=== PATIENT | male | born 1970 | race Caucasian/White ===

== ENCOUNTER 2016-07-13 10:26 | Emergency (ER) | payer MEDICAID, MEDICARE ==
[~2016-07-13 10:26] MED LIST: /CELE20CA; /ESOM40CA; /SUCR1TA; ACET500T2; ACET65TA; ALCOHOL TOP; AMIT25TA PO; AMOXICILLIN; ASPI1TAB PO; ASPI81TA13 PO; ASPI81TA83; AUGM875T27 PO; BIAX500T; CELEXA20 PO; FIBE62TA PO; GLUC1TOUCH TOPICAL; GLUCOPH500 PO; GLUCOSE TEST; GLUCULTRA TOPICAL; HUMULINN SC; HUMULINR SC; INSUH10VL SC; INSULADS SC; INSULANT; INSULINSYR SUBQ; KDUR20 PO; LANCMIS; LANTUS SQ; LANTUSCART; LESCOLXL80 PO; LEVO25TABR; LEVO25TABR PO; LEVO50TA45 PO; LIPITOR80 PO; LISI40TAB PO; LISI5TAB; MAG-TAB; MAG-TAB PO; METO10TA2; NEEDLESGP; NEXI40GR; NOVO7030 SC; NOVOLOG SQ; NOVOLOG100 MG/ML; NOVOLOG100 MG/ML SQ; NOVOLOGPEN SQ; PERCOCET PO; POTA10CA2 OR; POTA1TAB14 PO; PRIN10TA; PRIN5TAB OR; QUININE325 PO; SIMV40TA2 PO; SLOWMAG PO; SYNT50TA; SYNTHRO025 PO; SYNTHRO075 PO; SYNTHROI05 PO; SYRIN.5CC SUBQ; VYTO10TA5; VYTORIN80 PO; ZETI10TA; ZETI10TA PO; ZETIA PO; ZOCOR80 PO; [UNRECOGNIZED DRUG - CODE] SQ; [UNRECOGNIZED DRUG - CODE] SQ
[2016-07-13 10:57] LABS: MEAN CORPUSCULAR HEMOGLOBIN 29.5 pg (27.0-33.0); MEAN CORPUSCULAR HGB CONC 32.8 g/dl (32.0-36.5); MEAN CORPUSCULAR VOLUME 89.8 fl (80.0-96.0); RED CELL DISTRIBUTION WIDTH 12.9 % (11.5-14.5); WHITE BLOOD COUNT 10.2 K/mm3 (4.0-10.0)
[2016-07-13 11:19] LABS: CALCIUM LEVEL 8.4 MG/DL (8.5-10.1); CREATININE FOR GFR 1.89 MG/DL (0.70-1.30); GLOMERULAR FILTRATION RATE 41.3 (>60); POTASSIUM SERUM 4.1 MEQ/L (3.5-5.1)
--- NOTE | 2016-07-13 13:05 | EDDOCDS ---
Physician Documentation [facility] Name: Jose Mendiola Age: 45 yrs Sex: Male : 1970 Arrival Date: 07/13/2016 Time: 10:26 Bed 11 Private MD: Quinton Manriquez A. Disposition: 07/13/16 12:44 Discharged to Home/Self Care. Impression: Hypoglycemia, unspecified, Essential (primary) hypertension, Abnormal results of kidney function studies. - Condition is Stable. - Discharge Instructions: Hypertension, Hypertension, Gkrq-vf-Ruso, Managing Your High Blood Pressure, Hypoglycemia, Qurm-bo-Uxax. - Medication Reconciliation, Local Pharmacy Hours form. - Follow up: Quinton Manriquez; When: 2 - 3 days. - Problem is chronic. - Symptoms are unchanged. Historical: - Allergies: No known drug Allergies; - Home Meds: 1. Levemir FlexTouch 100 unit/mL (3 mL) subcutaneous inpn 2. simvastatin 40 mg Oral tab 1 tab once daily 3. amitriptyline 25 mg Oral tab 1 tab once daily - PMHx: Diabetes - IDDM: controlled; hyperlipidemia; Hypertension; - PSHx: Cholecystectomy; Appendectomy; - Social history: No barriers to communication noted, The patient speaks fluent Welsh, Speaks appropriately for age, Smoking status: Patient states was never smoker of tobacco. - Family history: Not pertinent. - : The pt / caregiver states he / she is not on anticoagulants. Home medication list is obtained from patients' pharmacy. - Exposure Risk Screening:: None identified. Vital Signs: 07/13 10:37 BP 199 / 105; Pulse 112; Resp 20; Temp 97.6(O); Pulse Ox 99% on R/A; ct3 11:25 BP 173 / 97; Pulse 128; lr2 12:42 BP 158 / 99 (auto/); jo3 12:45 Pulse 98 MON; Resp 16; Temp 97.6(O); Pulse Ox 97% ; Weight 81.65 kg / 180.01 lbs; jo3 Height 6 ft. 0 in. (182.88 cm); Pain 0/10; 12:45 Body Mass Index 24.41 (81.65 kg, 182.88 cm) jo3 MDM: 10:38 ECG WITH READING ER PHYS+CARDIAG ordered. EDMS 10:38 CBC Ordered. EDMS 10:38 MED Profile Ordered. EDMS 10:38 Misc. Nursing Order ordered. sd1 11:17 Financial registration complete. lg 11:25 CBC Reviewed. sd1 11:25 MED Profile Reviewed. sd1 11:31 [facility] Payment Agreement was scanned into [employer] and attached to record. lg 12:33 Misc. Nursing Order ordered. sd1 Signatures: Dispatcher [employer] EDMS Mandy Odonnell MD MD sd1 Wanda Vasquez, Reg Reg lg Anahy Arreaga,RN RN jo3 The chart was reviewed and I authenticate all verbal orders and agree with the evaluation and treatment provided.Attachments: 11:31 [facility] Payment Agreement lg MTDD
--- NOTE | 2016-07-13 13:05 | EDDOCDS ---
Nurse's Notes [facility] Name: Jose Mendiola Age: 45 yrs Sex: Male : 1970 Arrival Date: 07/13/2016 Time: 10:26 Bed 11 Private MD: Quinton Manriquez A. Diagnosis: Hypoglycemia, unspecified;Essential (primary) hypertension;Abnormal results of kidney function studies Presentation: 07/13 10:30 Presenting complaint: EMS states: Responded to low BG call. Initially 65. Decreased to jo3 40s after oral glucose. SL initiated and D50 given. FSBS now 171. Transported to ED due to increased BP 190s systolic initially, checked multiple times. Adult Sepsis Screening: Suicide/Homicide risk assessment- the patient denies having any suicidal and/or homicidal ideations and does not present with any other emotional, behavioral or mental health complaints. Status: Patient is not a travel services professional or dependent. Transition of care: patient was not received from another setting of care. 10:30 Acuity: NANCY Level 3 jo3 10:30 Method Of Arrival: Ambulance jo3 11:08 Adult Sepsis Screening: Patient's respiratory rate is less than 22. Systolic blood jo3 pressure is greater than 100. Patient has a qSOFA score of 0- Negative Sepsis Screen. Triage Assessment: 10:32 HIV screening NA for this visit Offered previously. jo3 10:35 General: Appears in no apparent distress, comfortable, Behavior is cooperative. Pain: jo3 Denies pain. Neurological: No deficits noted. Level of Consciousness is awake, alert, Oriented to person, place, time. Cardiovascular: No deficits noted. Respiratory: Airway is patent Respiratory effort is even, unlabored. Derm: Skin is pink, warm & dry. Historical: - Allergies: No known drug Allergies; - Home Meds: 1. Levemir FlexTouch 100 unit/mL (3 mL) subcutaneous inpn 2. simvastatin 40 mg Oral tab 1 tab once daily 3. amitriptyline 25 mg Oral tab 1 tab once daily - PMHx: Diabetes - IDDM: controlled; hyperlipidemia; Hypertension; - PSHx: Cholecystectomy; Appendectomy; - Social history: No barriers to communication noted, The patient speaks fluent Japanese, Speaks appropriately for age, Smoking status: Patient states was never smoker of tobacco. - Family history: Not pertinent. - : The pt / caregiver states he / she is not on anticoagulants. Home medication list is obtained from patients' pharmacy. - Exposure Risk Screening:: None identified. Screenin:10 Screening information is obtained from the patient. Fall risk: No risks identified. jo3 Assistance ADL's: requires no assistance with activities of daily living. Abuse/DV Screen: The patient / caregiver reports he/she is: not in a situation that causes fear, pain or injury. Nutritional screening: No deficits noted. Advance Directives: There is no active DNR order. home support is adequate. Assessment: 11:10 Reassessment: Pt reports that dick has not taken BP meds since Thursday because he has jo3 been at [employer]. Does not know what meds he takes. Will call [facility] to obtain medications list . 11:32 General: Appears in no apparent distress, comfortable, Behavior is appropriate for age, jo3 cooperative, pleasant. Neurological: Level of Consciousness is awake, alert, Oriented to person, place, time. Respiratory: Airway is patent Respiratory effort is even, unlabored. Derm: Skin is pink, warm & dry. 12:30 Reassessment: Patient appears in no apparent distress at this time. Patient denies pain jo3 at this time. Awaiting results for disposition. Aware of plan of care . 12:51 General: Appears in no apparent distress, comfortable, Behavior is appropriate for age, jo3 cooperative. Neurological: Level of Consciousness is awake, alert. Respiratory: No deficits noted. Airway is patent Respiratory effort is even, unlabored. Derm: Skin is pink, warm & dry. Vital Signs: 10:37 BP 199 / 105; Pulse 112; Resp 20; Temp 97.6(O); Pulse Ox 99% on R/A; ct3 11:25 BP 173 / 97; Pulse 128; lr2 12:42 BP 158 / 99 (auto/); jo3 12:45 Pulse 98 MON; Resp 16; Temp 97.6(O); Pulse Ox 97% ; Weight 81.65 kg; Height 6 ft. 0 in. jo3 (182.88 cm); Pain 0/10; 12:45 Body Mass Index 24.41 (81.65 kg, 182.88 cm) jo3 Vitals: 10:37 Log In Time N/A - ambulance arrival. ct3 ED Course: 10:27 Patient visited by Agata Montiel PCA. ar3 10:27 Quinton Manriquez is Private Physician. ar3 10:27 Patient moved to Waiting ar3 10:27 Patient moved to 11 ar3 10:32 Triage Initiated jo3 10:37 Accompanied by Family Member, Patient has correct armband on for positive ct3 identification. Placed in gown. 10:38 Patient visited by Nidia Small PCA. ct3 10:49 Patient visited by Nidia Small PCA. ct3 10:49 EKG done. (by ED staff). Reviewed by Mandy Odonnell MD. ct3 10:59 Mandy Odonnell MD is Attending Physician. sd1 10:59 Patient visited by Mandy Odonnell MD. sd1 11:10 The patient / caregiver is instructed regarding the plan of care and ED course. jo3 11:10 Maintain field IV. Dressing intact. Good blood return noted. Site clean & dry. Gauge & jo3 site: 18g in RFA. 11:14 Patient visited by Anahy Arreaga RN. jo3 11:25 Patient visited by Jeanette Dominguez. lr2 11:31 Patient name changed from Jose\S\\S\Mendiola\S\ to Jose\S\A\S\Mendiola. EDMS 11:31 [facility] [place] was scanned into [employer] and attached to record. lg 11:34 Patient visited by Anahy Arreaga RN. jo3 12:44 Quinton Manriquez is Referral Physician. sd1 12:45 No procedures done that require assistance. jo3 Order Results: Lab Order: CBC; SPEC'M 07/13/16 10:50 Test: WHITE BLOOD COUNT; Value: 10.2; Range: 4.0-10.0; Abnormal: Above high normal; Units: K/mm3; Status: F Test: RED BLOOD COUNT; Value: 4.85; Range: 4.30-6.10; Units: M/mm3; Status: F Test: HEMOGLOBIN; Value: 14.3; Range: 14.0-18.0; Units: g/dl; Status: F Test: HEMATOCRIT; Value: 43.5; Range: 42.0-52.0; Units: %; Status: F Test: MEAN CORPUSCULAR VOLUME; Value: 89.8; Range: 80.0-96.0; Units: fl; Status: F Test: MEAN CORPUSCULAR HEMOGLOBIN; Value: 29.5; Range: 27.0-33.0; Units: pg; Status: F Test: MEAN CORPUSCULAR HGB CONC; Value: 32.8; Range: 32.0-36.5; Units: g/dl; Status: F Test: RED CELL DISTRIBUTION WIDTH; Value: 12.9; Range: 11.5-14.5; Units: %; Status: F Test: PLATELET COUNT, AUTOMATED; Value: 312; Range: 150-450; Units: k/mm3; Status: F Lab Order: MED Profile; [facility] 07/13/16 10:50 Test: GLUCOSE, FASTING; Value: 159; Range: 70-105; Abnormal: Above high normal; Units: MG/DL; Status: F Test: BLOOD UREA NITROGEN; Value: 17; Range: 7-18; Units: MG/DL; Status: F Test: CREATININE FOR GFR; Value: 1.89; Range: 0.70-1.30; Abnormal: Above high normal; Units: MG/DL; Status: F Test: GLOMERULAR FILTRATION RATE; Value: 41.3; Range: >60; Abnormal: Below low normal; Status: F Test: SODIUM LEVEL; Value: 143; Range: 136-145; Units: MEQ/L; Status: F Test: POTASSIUM SERUM; Value: 4.1; Range: 3.5-5.1; Units: MEQ/L; Status: F Test: CHLORIDE LEVEL; Value: 107; Range: 98-107; Units: MEQ/L; Status: F Test: CARBON DIOXIDE LEVEL; Value: 25; Range: 21-32; Units: MEQ/L; Status: F Test: ANION GAP; Value: 11; Range: 8-16; Units: MEQ/L; Status: F Test: CALCIUM LEVEL; Value: 8.4; Range: 8.5-10.1; Abnormal: Below low normal; Units: MG/DL; Status: F Test Note: ; Units are mL/min/1.73 m2 Chronic Kidney Disease Staging per NKF: Stage I & II GFR >=60 Normal to Mildly Decreased Stage III GFR 30-59 Moderately Decreased Stage IV GFR 15-29 Severely Decreased Stage V GFR <15 Very Little GFR Left ESRD GFR <15 on [employer] TE[employer]ER Outcome: 12:44 Discharge ordered by Provider. sd1 12:45 Discharge Assessment: patient administered narcotics - no. The following High Risk jo3 Discharge criteria are identified: None. Discharged to home ambulatory, with significant other. Condition: stable Condition: improved. Discharge instructions given to patient, Instructed on discharge instructions, follow up and referral plans. medication usage, Demonstrated understanding of instructions, medications, Pt was receptive of discharge instructions/ teaching. No special radiology studies were completed. Property sent home with patient. 13:04 Patient left the ED. jo3 Signatures: Dispatcher [employer] EDMS Mandy Odonnell MD MD sd1 Wanda Vasquez Reg Reg lg Helmerci, Jennifer, RN RN jo3 Agata Montiel, ACADEMIC ADVISING DIRECTOR ACADEMIC ADVISING DIRECTOR ar3 Nidia Small, ACADEMIC ADVISING DIRECTOR ACADEMIC ADVISING DIRECTOR ct3 Jeanette Dominguez lr2 MTDD
--- NOTE | 2016-07-13 14:34 | ECGEPIP ---
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
--- NOTE | 2016-07-15 14:06 | EDDOCDS ---
Physician Documentation [facility] Name: Jose Mendiola Age: 45 yrs Sex: Male : 1970 Arrival Date: 07/13/2016 Time: 10:26 Bed 11 Private MD: Quinton Manriquez A. Disposition: 07/13/16 12:44 Discharged to Home/Self Care. Impression: Hypoglycemia, unspecified, Essential (primary) hypertension, Abnormal results of kidney function studies. - Condition is Stable. - Discharge Instructions: Hypertension, Hypertension, Huhj-zt-Ciuk, Managing Your High Blood Pressure, Hypoglycemia, Feuk-ec-Xlmb. - Medication Reconciliation, Local Pharmacy Hours form. - Follow up: Quinton Manriquez; When: 2 - 3 days. - Problem is chronic. - Symptoms are unchanged. Historical: - Allergies: No known drug Allergies; - Home Meds: 1. Levemir FlexTouch 100 unit/mL (3 mL) subcutaneous inpn 2. simvastatin 40 mg Oral tab 1 tab once daily 3. amitriptyline 25 mg Oral tab 1 tab once daily - PMHx: Diabetes - IDDM: controlled; hyperlipidemia; Hypertension; - PSHx: Cholecystectomy; Appendectomy; - Social history: No barriers to communication noted, The patient speaks fluent [place], Speaks appropriately for age, Smoking status: Patient states was never smoker of tobacco. - Family history: Not pertinent. - : The pt / caregiver states he / she is not on anticoagulants. Home medication list is obtained from patients' pharmacy. - Exposure Risk Screening:: None identified. Vital Signs: 07/13 10:37 BP 199 / 105; Pulse 112; Resp 20; Temp 97.6(O); Pulse Ox 99% on R/A; ct3 11:25 BP 173 / 97; Pulse 128; lr2 12:42 BP 158 / 99 (auto/); jo3 12:45 Pulse 98 MON; Resp 16; Temp 97.6(O); Pulse Ox 97% ; Weight 81.65 kg / 180.01 lbs; jo3 Height 6 ft. 0 in. (182.88 cm); Pain 0/10; 12:45 Body Mass Index 24.41 (81.65 kg, 182.88 cm) jo3 MDM: 10:38 ECG WITH READING ER PHYS+CARDIAG ordered. EDMS 10:38 CBC Ordered. EDMS 10:38 MED Profile Ordered. EDMS 10:38 Misc. Nursing Order ordered. sd1 11:17 Financial registration complete. lg 11:25 CBC Reviewed. sd1 11:25 MED Profile Reviewed. sd1 11:31 [facility] Payment Agreement was scanned into [employer] and attached to record. lg 12:33 Misc. Nursing Order ordered. sd1 15:48 T-Sheet-- Draft Copy was scanned into MEDHOST and attached to record. gb 15:48 ECG/EKG was scanned into MED[employer] and attached to record. gb Signatures: Dispatcher [employer] EDMS Mandy Odonnell MD MD sd1 Meme Echevarria, Reg Reg gb Wanda Vasquez, Reg Reg lg Anahy Arreaga,RN RN jo3 The chart was reviewed and I authenticate all verbal orders and agree with the evaluation and treatment provided.Attachments: 11:31 [facility] Payment Agreement lg 15:48 T-Sheet-- Draft Copy gb 15:48 ECG/EKG gb Chart Complete MTDD
--- NOTE | 2016-07-15 14:06 | EDDOCDS ---
Physician Documentation [facility] Name: Jose Mendiola Age: 45 yrs Sex: Male : 1970 Arrival Date: 07/13/2016 Time: 10:26 Bed 11 Private MD: Quinton Manriquez A. Disposition: 07/13/16 12:44 Discharged to Home/Self Care. Impression: Hypoglycemia, unspecified, Essential (primary) hypertension, Abnormal results of kidney function studies. - Condition is Stable. - Discharge Instructions: Hypertension, Hypertension, Hwwo-lk-Kurq, Managing Your High Blood Pressure, Hypoglycemia, Gxjm-ox-Vjcj. - Medication Reconciliation, Local Pharmacy Hours form. - Follow up: Quinton Manriquez; When: 2 - 3 days. - Problem is chronic. - Symptoms are unchanged. Historical: - Allergies: No known drug Allergies; - Home Meds: 1. Levemir FlexTouch 100 unit/mL (3 mL) subcutaneous inpn 2. simvastatin 40 mg Oral tab 1 tab once daily 3. amitriptyline 25 mg Oral tab 1 tab once daily - PMHx: Diabetes - IDDM: controlled; hyperlipidemia; Hypertension; - PSHx: Cholecystectomy; Appendectomy; - Social history: No barriers to communication noted, The patient speaks fluent [place], Speaks appropriately for age, Smoking status: Patient states was never smoker of tobacco. - Family history: Not pertinent. - : The pt / caregiver states he / she is not on anticoagulants. Home medication list is obtained from patients' pharmacy. - Exposure Risk Screening:: None identified. Vital Signs: 07/13 10:37 BP 199 / 105; Pulse 112; Resp 20; Temp 97.6(O); Pulse Ox 99% on R/A; ct3 11:25 BP 173 / 97; Pulse 128; lr2 12:42 BP 158 / 99 (auto/); jo3 12:45 Pulse 98 MON; Resp 16; Temp 97.6(O); Pulse Ox 97% ; Weight 81.65 kg / 180.01 lbs; jo3 Height 6 ft. 0 in. (182.88 cm); Pain 0/10; 12:45 Body Mass Index 24.41 (81.65 kg, 182.88 cm) jo3 MDM: 10:38 ECG WITH READING ER PHYS+CARDIAG ordered. EDMS 10:38 CBC Ordered. EDMS 10:38 MED Profile Ordered. EDMS 10:38 Misc. Nursing Order ordered. sd1 11:17 Financial registration complete. lg 11:25 CBC Reviewed. sd1 11:25 MED Profile Reviewed. sd1 11:31 [facility] Payment Agreement was scanned into MED[employer] and attached to record. lg 12:33 Misc. Nursing Order ordered. sd1 15:48 T-Sheet-- Draft Copy was scanned into MEDHOST and attached to record. gb 15:48 ECG/EKG was scanned into MED[employer] and attached to record. gb Signatures: Dispatcher [employer] EDMS Mandy Odonnell MD MD sd1 Meme Echevarria, Reg Reg gb Wanda Vasquez, Reg Reg lg Anahy Arreaga,RN RN jo3 The chart was reviewed and I authenticate all verbal orders and agree with the evaluation and treatment provided.Attachments: 11:31 [facility] Payment Agreement lg 15:48 T-Sheet-- Draft Copy gb 15:48 ECG/EKG gb Chart Complete MTDD
--- NOTE | 2016-07-15 14:06 | EDDOCDS ---
Nurse's Notes [facility] Name: Meaghan Mendiola Age: 45 yrs Sex: Male : 1970 Arrival Date: 07/13/2016 Time: 10:26 Bed 11 Private MD: Quinton Manriquez A. Diagnosis: Hypoglycemia, unspecified;Essential (primary) hypertension;Abnormal results of kidney function studies Presentation: 07/13 10:30 Presenting complaint: EMS states: Responded to low BG call. Initially 65. Decreased to jo3 40s after oral glucose. SL initiated and D50 given. FSBS now 171. Transported to ED due to increased BP 190s systolic initially, checked multiple times. Adult Sepsis Screening: Suicide/Homicide risk assessment- the patient denies having any suicidal and/or homicidal ideations and does not present with any other emotional, behavioral or mental health complaints. Status: Patient is not a rv service technician or dependent. Transition of care: patient was not received from another setting of care. 10:30 Acuity: NANCY Level 3 jo3 10:30 Method Of Arrival: Ambulance jo3 11:08 Adult Sepsis Screening: Patient's respiratory rate is less than 22. Systolic blood jo3 pressure is greater than 100. Patient has a qSOFA score of 0- Negative Sepsis Screen. Triage Assessment: 10:32 HIV screening NA for this visit Offered previously. jo3 10:35 General: Appears in no apparent distress, comfortable, Behavior is cooperative. Pain: jo3 Denies pain. Neurological: No deficits noted. Level of Consciousness is awake, alert, Oriented to person, place, time. Cardiovascular: No deficits noted. Respiratory: Airway is patent Respiratory effort is even, unlabored. Derm: Skin is pink, warm & dry. Historical: - Allergies: No known drug Allergies; - Home Meds: 1. Levemir FlexTouch 100 unit/mL (3 mL) subcutaneous inpn 2. simvastatin 40 mg Oral tab 1 tab once daily 3. amitriptyline 25 mg Oral tab 1 tab once daily - PMHx: Diabetes - IDDM: controlled; hyperlipidemia; Hypertension; - PSHx: Cholecystectomy; Appendectomy; - Social history: No barriers to communication noted, The patient speaks fluent Nepali, Speaks appropriately for age, Smoking status: Patient states was never smoker of tobacco. - Family history: Not pertinent. - : The pt / caregiver states he / she is not on anticoagulants. Home medication list is obtained from patients' pharmacy. - Exposure Risk Screening:: None identified. Screenin:10 Screening information is obtained from the patient. Fall risk: No risks identified. jo3 Assistance ADL's: requires no assistance with activities of daily living. Abuse/DV Screen: The patient / caregiver reports he/she is: not in a situation that causes fear, pain or injury. Nutritional screening: No deficits noted. Advance Directives: There is no active DNR order. home support is adequate. Assessment: 11:10 Reassessment: Pt reports that dick has not taken BP meds since Thursday because he has jo3 been at [employer]. Does not know what meds he takes. Will call [facility] to obtain medications list . 11:32 General: Appears in no apparent distress, comfortable, Behavior is appropriate for age, jo3 cooperative, pleasant. Neurological: Level of Consciousness is awake, alert, Oriented to person, place, time. Respiratory: Airway is patent Respiratory effort is even, unlabored. Derm: Skin is pink, warm & dry. 12:30 Reassessment: Patient appears in no apparent distress at this time. Patient denies pain jo3 at this time. Awaiting results for disposition. Aware of plan of care . 12:51 General: Appears in no apparent distress, comfortable, Behavior is appropriate for age, jo3 cooperative. Neurological: Level of Consciousness is awake, alert. Respiratory: No deficits noted. Airway is patent Respiratory effort is even, unlabored. Derm: Skin is pink, warm & dry. Vital Signs: 10:37 BP 199 / 105; Pulse 112; Resp 20; Temp 97.6(O); Pulse Ox 99% on R/A; ct3 11:25 BP 173 / 97; Pulse 128; lr2 12:42 BP 158 / 99 (auto/); jo3 12:45 Pulse 98 MON; Resp 16; Temp 97.6(O); Pulse Ox 97% ; Weight 81.65 kg; Height 6 ft. 0 in. jo3 (182.88 cm); Pain 0/10; 12:45 Body Mass Index 24.41 (81.65 kg, 182.88 cm) jo3 Vitals: 10:37 Log In Time N/A - ambulance arrival. ct3 ED Course: 10:27 Patient visited by Agata Montiel PCA. ar3 10:27 Quinton Manriquez is Private Physician. ar3 10:27 Patient moved to Waiting ar3 10:27 Patient moved to 11 ar3 10:32 Triage Initiated jo3 10:37 Accompanied by Family Member, Patient has correct armband on for positive ct3 identification. Placed in gown. 10:38 Patient visited by Nidia Small PCA. ct3 10:49 Patient visited by Nidia Small PCA. ct3 10:49 EKG done. (by ED staff). Reviewed by Mandy Odonnell MD. ct3 10:59 Mandy Odonnell MD is Attending Physician. sd1 10:59 Patient visited by Mandy Odonnell MD. sd1 11:10 The patient / caregiver is instructed regarding the plan of care and ED course. jo3 11:10 Maintain field IV. Dressing intact. Good blood return noted. Site clean & dry. Gauge & jo3 site: 18g in RFA. 11:14 Patient visited by Anahy Arreaga RN. jo3 11:25 Patient visited by Jeanette Dominguez. lr2 11:31 Patient name changed from Meaghan\S\\S\Mendiola\S\ to Meaghan\S\A\S\Mendiola. EDMS 11:31 [facility] [place] Agreement was scanned into [employer] and attached to record. lg 11:34 Patient visited by Anahy Arreaga RN. jo3 12:44 Quinton Manriquez is Referral Physician. sd1 12:45 No procedures done that require assistance. jo3 14:47 EKG-ADULT Returned. EDMS 15:48 T-Sheet-- Draft Copy was scanned into [employer] and attached to record. gb 15:48 ECG/EKG was scanned into [employer] and attached to record. gb Order Results: Lab Order: CBC; SPEC'M 07/13/16 10:50 Test: WHITE BLOOD COUNT; Value: 10.2; Range: 4.0-10.0; Abnormal: Above high normal; Units: K/mm3; Status: F Test: RED BLOOD COUNT; Value: 4.85; Range: 4.30-6.10; Units: M/mm3; Status: F Test: HEMOGLOBIN; Value: 14.3; Range: 14.0-18.0; Units: g/dl; Status: F Test: HEMATOCRIT; Value: 43.5; Range: 42.0-52.0; Units: %; Status: F Test: MEAN CORPUSCULAR VOLUME; Value: 89.8; Range: 80.0-96.0; Units: fl; Status: F Test: MEAN CORPUSCULAR HEMOGLOBIN; Value: 29.5; Range: 27.0-33.0; Units: pg; Status: F Test: MEAN CORPUSCULAR HGB CONC; Value: 32.8; Range: 32.0-36.5; Units: g/dl; Status: F Test: RED CELL DISTRIBUTION WIDTH; Value: 12.9; Range: 11.5-14.5; Units: %; Status: F Test: PLATELET COUNT, AUTOMATED; Value: 312; Range: 150-450; Units: k/mm3; Status: F Lab Order: MED Profile; [facility]' 07/13/16 10:50 Test: GLUCOSE, FASTING; Value: 159; Range: 70-105; Abnormal: Above high normal; Units: MG/DL; Status: F Test: BLOOD UREA NITROGEN; Value: 17; Range: 7-18; Units: MG/DL; Status: F Test: CREATININE FOR GFR; Value: 1.89; Range: 0.70-1.30; Abnormal: Above high normal; Units: MG/DL; Status: F Test: GLOMERULAR FILTRATION RATE; Value: 41.3; Range: >60; Abnormal: Below low normal; Status: F Test: SODIUM LEVEL; Value: 143; Range: 136-145; Units: MEQ/L; Status: F Test: POTASSIUM SERUM; Value: 4.1; Range: 3.5-5.1; Units: MEQ/L; Status: F Test: CHLORIDE LEVEL; Value: 107; Range: 98-107; Units: MEQ/L; Status: F Test: CARBON DIOXIDE LEVEL; Value: 25; Range: 21-32; Units: MEQ/L; Status: F Test: ANION GAP; Value: 11; Range: 8-16; Units: MEQ/L; Status: F Test: CALCIUM LEVEL; Value: 8.4; Range: 8.5-10.1; Abnormal: Below low normal; Units: MG/DL; Status: F Test Note: ; Units are mL/min/1.73 m2 Chronic Kidney Disease Staging per NKF: Stage I & II GFR >=60 Normal to Mildly Decreased Stage III GFR 30-59 Moderately Decreased Stage IV GFR 15-29 Severely Decreased Stage V GFR <15 Very Little GFR Left ESRD GFR <15 on CONTACT LENS CURVE GRINDER Radiology Order: EKG-ADULT Test: EKG-ADULT REASON FOR EXAMINATION: HTN; Stationary ECG Study; [facility] - ED; ; Test Date: 2016-07-13; Pat Name: MEAGHAN MENDIOLA Department:; Room: -; 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 sd1 12:45 Discharge Assessment: patient administered narcotics - no. The following High Risk jo3 Discharge criteria are identified: None. Discharged to home ambulatory, with significant other. Condition: stable Condition: improved. Discharge instructions given to patient, Instructed on discharge instructions, follow up and referral plans. medication usage, Demonstrated understanding of instructions, medications, Pt was receptive of discharge instructions/ teaching. No special radiology studies were completed. Property sent home with patient. 13:04 Patient left the ED. jo3 Signatures: Dispatcher [employer] EDMS Mandy Odonnell MD MD sd1 Meme Echevarria, Reg Reg gb Wanda Vasquez, Reg Reg lg Anahy Arreaga RN RN jo3 Agata Montiel, ASPHALT STILL OPERATOR ASPHALT STILL OPERATOR ar3 Nidia Small, ASPHALT STILL OPERATOR ASPHALT STILL OPERATOR ct3 Jeanette Dominguez lr2 Chart Complete MTDD
== END 2016-07-13 13:04 | disposition home or self-care (01) ==
LOC: M ED 10:26
DX: I10 Essential (primary) hypertension (principal); E11.9 Type 2 diabetes mellitus without complications; N28.9 Disorder of kidney and ureter, unspecified; E78.5 Hyperlipidemia, unspecified; Z79.899 Other long term (current) drug therapy; Z79.4 Long term (current) use of insulin

== ENCOUNTER → 2017-02-19 | Outpatient (CLI) | payer MEDICARE, MEDICAID ==
[~2017-02-19] MED LIST changes: +ARTI99.0; -ASPI81TA13 PO; +ASPI81TA24 PO; +ATEN25TA; -AUGM875T27 PO; +AUGM875T28 PO; +LEVE1INJ5; +METF500T13
--- NOTE | 2017-02-20 09:43 | REP ---
Clinical: Heel pain. Technique: Axial and lateral views of the right calcaneus. Findings: Calcaneus is intact and without fracture or dislocation. Joint spaces are relatively normal for age. Lateral view best demonstrates significant vascular calcifications suggesting underlying atherosclerotic disease. No significant calcaneal heal spur or plantar calcifications are identified. Impression: Findings suggest significant small vessel atherosclerotic disease. Calcaneus appears relatively normal for age. No significant soft tissue calcifications. Signed by Cain Valle MD 02/20/2017 09:18 A
== END ==
LOC: M RAD 17:45
PROVIDERS: ATTEND Physician Assistant Medical
DX: M79.671 Pain in right foot (principal)

== ENCOUNTER 2017-07-21 14:43 | Inpatient (IN) | payer MEDICARE, MEDICAID ==
[2017-07-21] MEDS: NS 1,000 ML IV ×2 (16:00→17:32)
[2017-07-21] MEDS: ONDANSETRON 4MG/2ML VIAL (J2405) IV (16:00)
[2017-07-21 16:13] LABS: BASO % 0.2 % (0.0-1.0); HEMATOCRIT 41.4 % (42.0-52.0); HEMOGLOBIN 13.8 g/dl (14.0-18.0); IMMATURE GRANULOCYTE % 0.4 % (0-3.0); LYMPH # 0.4 10^3/uL (1.5-4.5); LYMPH % 2.2 % (24.0-44.0); MEAN CORPUSCULAR HEMOGLOBIN 29.8 pg (27.0-33.0); MEAN CORPUSCULAR HGB CONC 33.3 g/dl (32.0-36.5); MEAN CORPUSCULAR VOLUME 89.4 fl (80.0-96.0); MONO # 0.4 10^3/uL (0.0-0.8); MONO % 2.2 % (0.0-5.0); NEUTROPHILS # 15.3 10^3/uL (1.8-7.7); PLATELET COUNT, AUTOMATED 413 10^3/uL (150-450); RED BLOOD COUNT 4.63 10^6/uL (4.30-6.10); RED CELL DISTRIBUTION WIDTH 12.4 % (11.5-14.5); WHITE BLOOD COUNT 16.1 10^3/uL (4.0-10.0)
[2017-07-21 16:15] LABS: VENOUS BASE EXCESS -18.2 (-2.0-2.0); VENOUS HCO3 9.8 MEQ/L (23.0-27.0); VENOUS O2 SATURATION 82.1 % (60.0-80.0); VENOUS PARTIAL PRESSURE CO2 30.6 mmHg (38.0-50.0); VENOUS PARTIAL PRESSURE O2 53.3 mmHg (30.0-50.0); VENOUS PH 7.125 UNITS (7.330-7.430); VENOUS STANDARD HCO3 11.1 MEQ/L; VENOUS TOTAL CO2 10.8 MEQ/L (24.0-28.0)
[2017-07-21] MEDS ORDERED: INSULIN HUMAN REGULAR 100 UNITS in NS 99 ML IV (16:33)
[2017-07-21 16:41] LABS: ESTIMATED AVERAGE GLUCOSE 214 MG/DL (60-110); HEMOGLOBIN A1c 9.1 %
[2017-07-21] MEDS ORDERED: INSULIN IV RATE CHANGE DOCUMENTATION ML/HR XX (16:45)
[2017-07-21 16:50] LABS: ANION GAP 22 MEQ/L (8-16); BLOOD UREA NITROGEN 46 MG/DL (7-18); CALCIUM LEVEL 8.7 MG/DL (8.5-10.1); CARBON DIOXIDE LEVEL 11 MEQ/L (21-32); CHLORIDE LEVEL 94 MEQ/L (98-107); CK-MB VALUE MASS 2.3 NG/ML (0.0-3.6); CPK CREATINE PHOSPHOKINASE 127 U/L (39-308); CREATININE FOR GFR 4.23 MG/DL (0.70-1.30); GLOMERULAR FILTRATION RATE 16.2 (>60); MB/CK RELATIVE INDEX 1.81 (< OR =4); SODIUM LEVEL 127 MEQ/L (136-145); TROPONIN I 0.11 NG/ML (< 0.10)
[2017-07-21 17:02] LABS: GLUCOSE, FASTING 739 MG/DL (70-100)
[2017-07-21 17:04] LABS: POTASSIUM SERUM 7.3 MEQ/L (3.5-5.1)
[2017-07-21] MEDS: HumuLIN R (REGULAR) INSULIN (NovoLIN R) **100U/ML** PER UNIT IV (17:21)
[2017-07-21] MEDS: CALCIUM CHLORIDE 10% 1 GM in D5W 100 ML IV (17:32)
[2017-07-21] MEDS: INSULIN HUMAN REGULAR 100 UNITS in NS 99 ML IV (18:24)
[2017-07-21 19:19] LABS: ANION GAP 18 MEQ/L (8-16); BLOOD UREA NITROGEN 43 MG/DL (7-18); CALCIUM LEVEL 9.6 MG/DL (8.5-10.1); CARBON DIOXIDE LEVEL 13 MEQ/L (21-32); CHLORIDE LEVEL 105 MEQ/L (98-107); CREATININE FOR GFR 3.97 MG/DL (0.70-1.30); FREE THYROXINE INDEX 2.2 % (1.4-3.8); GLOMERULAR FILTRATION RATE 17.4 (>60); MAGNESIUM LEVEL 2.4 MG/DL (1.8-2.4); PHOSPHORUS LEVEL 5.2 MG/DL (2.5-4.9); SODIUM LEVEL 136 MEQ/L (136-145); T UPTAKE 33 % (33-40); THYROXINE (T4) 6.8 UG/DL (4.5-12.0)
[2017-07-21 19:22] LABS: ACETONE/KETONE > 46.00 MG/DL (<2.81); GLUCOSE, FASTING 423 MG/DL (70-100)
[2017-07-21] MEDS: PANTOPRAZOLE 40MG INJ (PROTONIX) (C9113) IV (19:48)
[2017-07-21] MEDS: INSULIN IV RATE CHANGE DOCUMENTATION ML/HR XX ×2 (19:48→21:22)
[2017-07-21 19:50] LABS: BEDSIDE GLUCOSE 272 MG/DL (70-105)
[2017-07-21] MEDS: POTASSIUM CHLORIDE INJ 20 MEQ in NS 1,000 ML IV (20:00)
[2017-07-21 20:15] LABS: KETONE, URINE AUTO RFX 1+ mg/dL (NEGATIVE); LEUKOCYTE ESTERASE UR AUTO RFX NEGATIVE (NEGATIVE); MUCUS, URINE RFX SMALL (NEGATIVE); NITRITE, URINE AUTO RFX NEGATIVE (NEGATIVE); RBC, URINE AUTO RFX 0 /HPF (0-3); SPECIFIC GRAVITY UR AUTO RFX 1.015 (1.002-1.035); SQUAM EPITHELIAL CELL UR AURFX 0 /HPF (0-6); WBC, URINE AUTO RFX 1 /HPF (0-3)
[2017-07-21 20:17] LABS: OSMOLALITY URINE 397 MOSM/KG (500-800)
[2017-07-21 20:30] LABS: BEDSIDE GLUCOSE 215 MG/DL (70-105)
[2017-07-21 20:34] LABS: CHLORIDE,RANDOM URINE 34 MEQ/L; SODIUM,RANDOM URINE 47 MEQ/L; TOTAL PROTEIN,RANDOM URINE 208.8 MG/DL (0.0-12.0)
[2017-07-21 21:28] LABS: BEDSIDE GLUCOSE 171 MG/DL (70-105)
[2017-07-21] MEDS: KCL 20MEQ IN D5/0.45NS 1000ML 1,000 ML IV (22:00)
[2017-07-21] MEDS: AMITRIPTYLINE 25 MG TAB PO (22:31)
[2017-07-21] MEDS: HEPARIN SOD (PORCINE) 5000 UNITS/ML VIAL SC (22:31)
[2017-07-21 22:34] LABS: ACETONE/KETONE 29.24 MG/DL (<2.81); ANION GAP 14 MEQ/L (8-16); BLOOD UREA NITROGEN 40 MG/DL (7-18); CALCIUM LEVEL 8.8 MG/DL (8.5-10.1); CARBON DIOXIDE LEVEL 16 MEQ/L (21-32); CHLORIDE LEVEL 112 MEQ/L (98-107); CPK CREATINE PHOSPHOKINASE 93 U/L (39-308); CREATININE FOR GFR 3.59 MG/DL (0.70-1.30); GLOMERULAR FILTRATION RATE 19.6 (>60); GLUCOSE, FASTING 180 MG/DL (70-100); MAGNESIUM LEVEL 2.4 MG/DL (1.8-2.4); SODIUM LEVEL 142 MEQ/L (136-145); TROPONIN I 0.37 NG/ML (< 0.10)
[2017-07-21 22:35] LABS: CK-MB VALUE MASS 2.3 NG/ML (0.0-3.6); MB/CK RELATIVE INDEX 2.47 (< OR =4)
[2017-07-21 22:40] LABS: BEDSIDE GLUCOSE 166 MG/DL (70-105)
[2017-07-21 23:33] LABS: BEDSIDE GLUCOSE 151 MG/DL (70-105)
[2017-07-22 00:29] LABS: BEDSIDE GLUCOSE 159 MG/DL (70-105)
[2017-07-22 01:36] LABS: BEDSIDE GLUCOSE 169 MG/DL (70-105)
[2017-07-22] MEDS: INSULIN IV RATE CHANGE DOCUMENTATION ML/HR XX (02:29)
[2017-07-22 02:31] LABS: BEDSIDE GLUCOSE 138 MG/DL (70-105)
[2017-07-22 02:49] LABS: ACETONE/KETONE 8.04 MG/DL (<2.81); ANION GAP 9 MEQ/L (8-16); BLOOD UREA NITROGEN 37 MG/DL (7-18); CALCIUM LEVEL 8.5 MG/DL (8.5-10.1); CARBON DIOXIDE LEVEL 19 MEQ/L (21-32); CHLORIDE LEVEL 114 MEQ/L (98-107); CREATININE FOR GFR 3.56 MG/DL (0.70-1.30); GLOMERULAR FILTRATION RATE 19.8 (>60); GLUCOSE, FASTING 166 MG/DL (70-100); PHOSPHORUS LEVEL 3.1 MG/DL (2.5-4.9); SODIUM LEVEL 142 MEQ/L (136-145)
[2017-07-22 03:41] LABS: BEDSIDE GLUCOSE 147 MG/DL (70-105)
[2017-07-22 04:37] LABS: BEDSIDE GLUCOSE 132 MG/DL (70-105)
[2017-07-22] MEDS: KCL 20MEQ IN D5/0.45NS 1000ML 1,000 ML IV (04:40)
[2017-07-22 05:36] LABS: BEDSIDE GLUCOSE 111 MG/DL (70-105)
[2017-07-22] MEDS: LEVOTHYROXINE 50MCG TABLET (0.05MG) PO (05:44)
[2017-07-22] MEDS: INSULIN HUMAN REGULAR 100 UNITS in NS 99 ML IV (05:46)
[2017-07-22] MEDS: HEPARIN SOD (PORCINE) 5000 UNITS/ML VIAL SC ×3 (06:00→21:48)
[2017-07-22 06:28] LABS: BEDSIDE GLUCOSE 114 MG/DL (70-105)
[2017-07-22 07:28] LABS: ACETONE/KETONE 5.17 MG/DL (<2.81); ANION GAP 9 MEQ/L (8-16); BLOOD UREA NITROGEN 33 MG/DL (7-18); CALCIUM LEVEL 8.7 MG/DL (8.5-10.1); CARBON DIOXIDE LEVEL 20 MEQ/L (21-32); CHLORIDE LEVEL 113 MEQ/L (98-107); CK-MB VALUE MASS 1.9 NG/ML (0.0-3.6); CPK CREATINE PHOSPHOKINASE 72 U/L (39-308); CREATININE FOR GFR 3.51 MG/DL (0.70-1.30); GLOMERULAR FILTRATION RATE 20.1 (>60); GLUCOSE, FASTING 126 MG/DL (70-100); MAGNESIUM LEVEL 1.9 MG/DL (1.8-2.4); MB/CK RELATIVE INDEX 2.63 (< OR =4); POTASSIUM SERUM 4.6 MEQ/L (3.5-5.1); SODIUM LEVEL 142 MEQ/L (136-145); TROPONIN I 0.67 NG/ML (< 0.10)
[2017-07-22] MEDS: HumaLOG INSULIN (NovoLOG) PER UNIT SC ×4 (07:30→21:11)
[2017-07-22 07:35] LABS: BEDSIDE GLUCOSE 111 MG/DL (70-105)
[2017-07-22] MEDS ORDERED: GLUCOSE 4 GM CHEW TABLET PO (08:15)
[2017-07-22] MEDS ORDERED: GLUCAGON FOR INJ 1 MG VIAL (J1610) SC (08:15)
[2017-07-22] MEDS: NS 1,000 ML IV ×2 (08:15→17:17)
[2017-07-22] MEDS: LEVEMIR (INSULIN DETEMIR) 1 UNITS/0.01ML SC (09:31)
[2017-07-22] MEDS: ASPIRIN 81 MG ENTERIC TAB PO (09:31)
[2017-07-22] MEDS: ATORVASTATIN 20 MG TAB PO (09:32)
[2017-07-22] MEDS: FIBER-CON 625 MG TAB PO (09:32)
[2017-07-22] MEDS: ATENOLOL 25 MG TAB PO (09:32)
[2017-07-22 10:07] LABS: BEDSIDE GLUCOSE > 600 MG/DL (70-105)
[2017-07-22 11:44] LABS: BEDSIDE GLUCOSE 116 MG/DL (70-105)
[2017-07-22] MEDS: amLODIPine 10 MG TAB PO (12:23)
[2017-07-22] MEDS: DEXTROSE 50% 50 ML SYRINGE IV ×2 (14:52→17:16)
[2017-07-22] MEDS: **hydrALAZINE HCL** 25 MG TAB PO ×2 (15:00→20:25)
[2017-07-22 17:36] LABS: BEDSIDE GLUCOSE 82 MG/DL (70-105)
[2017-07-22 17:36] LABS: BEDSIDE GLUCOSE 29 MG/DL (70-105)
[2017-07-22 17:37] LABS: BEDSIDE GLUCOSE 49 MG/DL (70-105)
[2017-07-22 17:58] LABS: BEDSIDE GLUCOSE 95 MG/DL (70-105)
[2017-07-22 18:10] LABS: ANION GAP 9 MEQ/L (8-16); BLOOD UREA NITROGEN 27 MG/DL (7-18); CALCIUM LEVEL 8.4 MG/DL (8.5-10.1); CARBON DIOXIDE LEVEL 19 MEQ/L (21-32); CHLORIDE LEVEL 114 MEQ/L (98-107); CREATININE FOR GFR 3.19 MG/DL (0.70-1.30); GLOMERULAR FILTRATION RATE 22.5 (>60); GLUCOSE, FASTING 68 MG/DL (70-100); POTASSIUM SERUM 4.1 MEQ/L (3.5-5.1); SODIUM LEVEL 142 MEQ/L (136-145)
[2017-07-22] MEDS: D5W/0.45% SODIUM CHLORIDE 1,000 ML IV ×2 (18:11→23:13)
[2017-07-22] MEDS: ONDANSETRON 4MG/2ML VIAL (J2405) IV (18:42)
[2017-07-22 21:04] LABS: BEDSIDE GLUCOSE 55 MG/DL (70-105)
[2017-07-22] MEDS: METOCLOPRAMIDE 10 MG TAB PO (21:48)
[2017-07-22] MEDS: AMITRIPTYLINE 25 MG TAB PO (21:48)
[2017-07-22] MEDS: D5W 1,000 ML IV (21:49)
[2017-07-22 22:12] LABS: BEDSIDE GLUCOSE 80 MG/DL (70-105)
[2017-07-22 23:40] LABS: PHOSPHORUS LEVEL 2.7 MG/DL (2.5-4.9)
[2017-07-22 23:40] LABS: GLUCOSE, FASTING 91 MG/DL (70-100)
[2017-07-23] MEDS: **hydrALAZINE HCL** 25 MG TAB PO ×4 (01:54→20:06)
[2017-07-23 02:16] LABS: ANION GAP 7 MEQ/L (8-16); BLOOD UREA NITROGEN 22 MG/DL (7-18); CARBON DIOXIDE LEVEL 20 MEQ/L (21-32); CHLORIDE LEVEL 114 MEQ/L (98-107); CREATININE FOR GFR 2.84 MG/DL (0.70-1.30); GLOMERULAR FILTRATION RATE 25.7 (>60); GLUCOSE, FASTING 91 MG/DL (70-100); POTASSIUM SERUM 4.1 MEQ/L (3.5-5.1); SODIUM LEVEL 141 MEQ/L (136-145)
[2017-07-23] MEDS: LEVOTHYROXINE 50MCG TABLET (0.05MG) PO (05:34)
[2017-07-23] MEDS: HEPARIN SOD (PORCINE) 5000 UNITS/ML VIAL SC ×3 (05:35→22:32)
[2017-07-23 06:40] LABS: HEMATOCRIT 36.3 % (42.0-52.0); HEMOGLOBIN 12.3 g/dl (14.0-18.0); MEAN CORPUSCULAR HEMOGLOBIN 29.4 pg (27.0-33.0); MEAN CORPUSCULAR HGB CONC 33.9 g/dl (32.0-36.5); MEAN CORPUSCULAR VOLUME 86.6 fl (80.0-96.0); PLATELET COUNT, AUTOMATED 325 10^3/uL (150-450); RED BLOOD COUNT 4.19 10^6/uL (4.30-6.10); RED CELL DISTRIBUTION WIDTH 13.2 % (11.5-14.5)
[2017-07-23 06:56] LABS: ANION GAP 10 MEQ/L (8-16); BLOOD UREA NITROGEN 19 MG/DL (7-18); CALCIUM LEVEL 8.3 MG/DL (8.5-10.1); CARBON DIOXIDE LEVEL 19 MEQ/L (21-32); CHLORIDE LEVEL 111 MEQ/L (98-107); GLOMERULAR FILTRATION RATE 26.1 (>60); GLUCOSE, FASTING 91 MG/DL (70-100); POTASSIUM SERUM 3.8 MEQ/L (3.5-5.1); SODIUM LEVEL 140 MEQ/L (136-145)
[2017-07-23 07:00] LABS: ACETONE/KETONE 2.96 MG/DL (<2.81)
[2017-07-23] MEDS: HumaLOG INSULIN (NovoLOG) PER UNIT SC ×4 (07:30→20:02)
[2017-07-23] MEDS: METOCLOPRAMIDE 10 MG TAB PO ×4 (08:15→20:06)
[2017-07-23] MEDS: ASPIRIN 81 MG ENTERIC TAB PO (08:16)
[2017-07-23] MEDS: ATORVASTATIN 20 MG TAB PO (08:17)
[2017-07-23] MEDS: ATENOLOL 25 MG TAB PO (08:17)
[2017-07-23] MEDS: FIBER-CON 625 MG TAB PO (08:17)
[2017-07-23] MEDS: amLODIPine 10 MG TAB PO (08:17)
[2017-07-23] MEDS: LEVEMIR (INSULIN DETEMIR) 1 UNITS/0.01ML SC (09:00)
[2017-07-23] MEDS: D5W/0.45% SODIUM CHLORIDE 1,000 ML IV ×2 (10:15→20:06)
[2017-07-23 11:52] LABS: BEDSIDE GLUCOSE 211 MG/DL (70-105)
[2017-07-23] MEDS: DEXTROSE 50% 50 ML SYRINGE IV (16:35)
[2017-07-23 16:41] LABS: BEDSIDE GLUCOSE 31 MG/DL (70-105)
[2017-07-23 17:29] LABS: BEDSIDE GLUCOSE 65 MG/DL (70-105)
[2017-07-23 18:12] LABS: BEDSIDE GLUCOSE 77 MG/DL (70-105)
[2017-07-23 18:49] LABS: BEDSIDE GLUCOSE 115 MG/DL (70-105)
[2017-07-23] MEDS: AMITRIPTYLINE 25 MG TAB PO (20:05)
[2017-07-23] MEDS: TAMSULOSIN 0.4 MG CAP PO (20:05)
[2017-07-23 20:21] LABS: BEDSIDE GLUCOSE 196 MG/DL (70-105)
[2017-07-24] MEDS: NS 1,000 ML IV (00:26)
[2017-07-24] MEDS: **hydrALAZINE HCL** 25 MG TAB PO ×4 (01:41→20:58)
[2017-07-24 02:49] LABS: BEDSIDE GLUCOSE 267 MG/DL (70-105)
[2017-07-24] MEDS: HEPARIN SOD (PORCINE) 5000 UNITS/ML VIAL SC ×3 (05:22→20:58)
[2017-07-24] MEDS: LEVOTHYROXINE 50MCG TABLET (0.05MG) PO (05:22)
[2017-07-24 05:59] LABS: HEMATOCRIT 34.9 % (42.0-52.0); HEMOGLOBIN 11.6 g/dl (14.0-18.0); MEAN CORPUSCULAR HEMOGLOBIN 29.1 pg (27.0-33.0); MEAN CORPUSCULAR HGB CONC 33.2 g/dl (32.0-36.5); MEAN CORPUSCULAR VOLUME 87.7 fl (80.0-96.0); PLATELET COUNT, AUTOMATED 309 10^3/uL (150-450); RED BLOOD COUNT 3.98 10^6/uL (4.30-6.10); RED CELL DISTRIBUTION WIDTH 12.9 % (11.5-14.5); WHITE BLOOD COUNT 10.6 10^3/uL (4.0-10.0)
[2017-07-24 06:23] LABS: ANION GAP 9 MEQ/L (8-16); BLOOD UREA NITROGEN 17 MG/DL (7-18); CARBON DIOXIDE LEVEL 20 MEQ/L (21-32); CHLORIDE LEVEL 107 MEQ/L (98-107); CREATININE FOR GFR 2.88 MG/DL (0.70-1.30); GLOMERULAR FILTRATION RATE 25.3 (>60); GLUCOSE, FASTING 309 MG/DL (70-100); POTASSIUM SERUM 4.5 MEQ/L (3.5-5.1); SODIUM LEVEL 136 MEQ/L (136-145)
[2017-07-24] MEDS: HumaLOG INSULIN (NovoLOG) PER UNIT SC ×4 (08:05→20:50)
[2017-07-24] MEDS: ASPIRIN 81 MG ENTERIC TAB PO (08:06)
[2017-07-24] MEDS: LEVEMIR (INSULIN DETEMIR) 1 UNITS/0.01ML SC (08:06)
[2017-07-24] MEDS: FIBER-CON 625 MG TAB PO (08:06)
[2017-07-24] MEDS: METOCLOPRAMIDE 10 MG TAB PO ×5 (08:07→20:57)
[2017-07-24] MEDS: amLODIPine 10 MG TAB PO (08:07)
[2017-07-24] MEDS: ATORVASTATIN 20 MG TAB PO (08:07)
[2017-07-24] MEDS: ATENOLOL 25 MG TAB PO (08:07)
[2017-07-24] MEDS: TAMSULOSIN 0.4 MG CAP PO ×2 (08:08→20:57)
[2017-07-24 12:15] LABS: BEDSIDE GLUCOSE 178 MG/DL (70-105)
[2017-07-24 18:00] LABS: BEDSIDE GLUCOSE 84 MG/DL (70-105)
[2017-07-24 20:44] LABS: BEDSIDE GLUCOSE 216 MG/DL (70-105)
[2017-07-24] MEDS: AMITRIPTYLINE 25 MG TAB PO (20:57)
[2017-07-25] MEDS: **hydrALAZINE HCL** 25 MG TAB PO ×4 (02:01→21:09)
[2017-07-25] MEDS: HEPARIN SOD (PORCINE) 5000 UNITS/ML VIAL SC ×3 (05:59→21:09)
[2017-07-25] MEDS: LEVOTHYROXINE 50MCG TABLET (0.05MG) PO (05:59)
[2017-07-25 06:58] LABS: HEMATOCRIT 34.3 % (42.0-52.0); HEMOGLOBIN 11.3 g/dl (14.0-18.0); MEAN CORPUSCULAR HGB CONC 32.9 g/dl (32.0-36.5); PLATELET COUNT, AUTOMATED 266 10^3/uL (150-450); RED BLOOD COUNT 3.77 10^6/uL (4.30-6.10); WHITE BLOOD COUNT 9.9 10^3/uL (4.0-10.0)
[2017-07-25 07:23] LABS: ANION GAP 7 MEQ/L (8-16); BLOOD UREA NITROGEN 26 MG/DL (7-18); CALCIUM LEVEL 8.1 MG/DL (8.5-10.1); CARBON DIOXIDE LEVEL 23 MEQ/L (21-32); CHLORIDE LEVEL 104 MEQ/L (98-107); CREATININE FOR GFR 3.39 MG/DL (0.70-1.30); GLOMERULAR FILTRATION RATE 20.9 (>60); GLUCOSE, FASTING 345 MG/DL (70-100); POTASSIUM SERUM 4.5 MEQ/L (3.5-5.1); SODIUM LEVEL 134 MEQ/L (136-145)
[2017-07-25] MEDS: HumaLOG INSULIN (NovoLOG) PER UNIT SC ×4 (08:48→21:08)
[2017-07-25] MEDS: amLODIPine 10 MG TAB PO (08:49)
[2017-07-25] MEDS: ATENOLOL 25 MG TAB PO (08:49)
[2017-07-25] MEDS: LEVEMIR (INSULIN DETEMIR) 1 UNITS/0.01ML SC (08:49)
[2017-07-25] MEDS: ATORVASTATIN 20 MG TAB PO (08:49)
[2017-07-25] MEDS: FIBER-CON 625 MG TAB PO (08:49)
[2017-07-25] MEDS: TAMSULOSIN 0.4 MG CAP PO ×2 (08:50→21:13)
[2017-07-25] MEDS: ASPIRIN 81 MG ENTERIC TAB PO (08:50)
[2017-07-25] MEDS: METOCLOPRAMIDE 10 MG TAB PO ×4 (08:50→21:09)
[2017-07-25] MEDS: NS 1,000 ML IV ×2 (11:44→21:10)
[2017-07-25] MEDS: NS 500 ML IV (11:44)
[2017-07-25 12:23] LABS: BEDSIDE GLUCOSE 261 MG/DL (70-105)
[2017-07-25 17:18] LABS: BEDSIDE GLUCOSE 54 MG/DL (70-105)
[2017-07-25 17:57] LABS: BEDSIDE GLUCOSE 113 MG/DL (70-105)
[2017-07-25 21:08] LABS: BEDSIDE GLUCOSE 286 MG/DL (70-105)
[2017-07-25] MEDS: AMITRIPTYLINE 25 MG TAB PO (21:09)
[2017-07-26] MEDS: **hydrALAZINE HCL** 25 MG TAB PO ×4 (02:00→21:17)
[2017-07-26] MEDS: HEPARIN SOD (PORCINE) 5000 UNITS/ML VIAL SC ×3 (06:23→21:18)
[2017-07-26] MEDS: LEVOTHYROXINE 50MCG TABLET (0.05MG) PO (06:23)
[2017-07-26] MEDS: NS 1,000 ML IV ×3 (06:24→16:00)
[2017-07-26 06:44] LABS: HEMATOCRIT 32.3 % (42.0-52.0); HEMOGLOBIN 10.7 g/dl (14.0-18.0); MEAN CORPUSCULAR HEMOGLOBIN 29.6 pg (27.0-33.0); MEAN CORPUSCULAR HGB CONC 33.1 g/dl (32.0-36.5); MEAN CORPUSCULAR VOLUME 89.2 fl (80.0-96.0); PLATELET COUNT, AUTOMATED 262 10^3/uL (150-450); RED BLOOD COUNT 3.62 10^6/uL (4.30-6.10); RED CELL DISTRIBUTION WIDTH 12.5 % (11.5-14.5); WHITE BLOOD COUNT 9.7 10^3/uL (4.0-10.0)
[2017-07-26 07:07] LABS: ANION GAP 9 MEQ/L (8-16); BLOOD UREA NITROGEN 29 MG/DL (7-18); CALCIUM LEVEL 7.6 MG/DL (8.5-10.1); CARBON DIOXIDE LEVEL 21 MEQ/L (21-32); CHLORIDE LEVEL 106 MEQ/L (98-107); CREATININE FOR GFR 3.27 MG/DL (0.70-1.30); GLOMERULAR FILTRATION RATE 21.8 (>60); GLUCOSE, FASTING 314 MG/DL (70-100); POTASSIUM SERUM 4.4 MEQ/L (3.5-5.1); SODIUM LEVEL 136 MEQ/L (136-145)
[2017-07-26] MEDS: ATENOLOL 25 MG TAB PO (08:39)
[2017-07-26] MEDS: TAMSULOSIN 0.4 MG CAP PO ×2 (08:39→21:17)
[2017-07-26] MEDS: amLODIPine 10 MG TAB PO (08:39)
[2017-07-26] MEDS: METOCLOPRAMIDE 10 MG TAB PO ×4 (08:39→21:16)
[2017-07-26] MEDS: ASPIRIN 81 MG ENTERIC TAB PO (08:39)
[2017-07-26] MEDS: ATORVASTATIN 20 MG TAB PO (08:40)
[2017-07-26] MEDS: HumaLOG INSULIN (NovoLOG) PER UNIT SC ×4 (08:40→21:11)
[2017-07-26] MEDS: FIBER-CON 625 MG TAB PO (08:40)
[2017-07-26] MEDS: LEVEMIR (INSULIN DETEMIR) 1 UNITS/0.01ML SC (08:48)
[2017-07-26 12:04] LABS: BEDSIDE GLUCOSE 327 MG/DL (70-105)
[2017-07-26 17:31] LABS: BEDSIDE GLUCOSE 95 MG/DL (70-105)
[2017-07-26 20:15] LABS: BEDSIDE GLUCOSE 148 MG/DL (70-105)
[2017-07-26] MEDS: AMITRIPTYLINE 25 MG TAB PO (21:17)
[2017-07-27 00:54] LABS: APPEARANCE, URINE HAZY (CLEAR); BACTERIA, URINE AUTO 1+ (NEGATIVE); BILIRUBIN, URINE AUTO NEGATIVE (NEGATIVE); BLOOD, URINE BLOOD 2+ (NEGATIVE); COLOR, URINE YELLOW (YELLOW); GLUCOSE, URINE (UA) AUTO 2+ mg/dL (NEGATIVE); KETONE, URINE AUTO NEGATIVE (NEGATIVE); LEUKOCYTE ESTERASE, URINE AUTO NEGATIVE (NEGATIVE); MUCUS, URINE SMALL (NEGATIVE); NITRITE, URINE AUTO NEGATIVE (NEGATIVE); PROTEIN, URINE AUTO 2+ mg/dL (NEGATIVE); RBC, URINE AUTO 142 /HPF (0-3); SPECIFIC GRAVITY URINE AUTO 1.009 (1.002-1.035); SQUAMOUS EPITHELIAL CELL UR AU 0 /HPF (0-6); UROBILINOGEN, URINE AUTO 0.2 mg/dL (0.0-2.0); WBC, URINE AUTO 2 /HPF (0-3)
[2017-07-27] MEDS ORDERED: **hydrALAZINE HCL** 25 MG TAB As Ordered (01:11)
[2017-07-27] MEDS: **hydrALAZINE HCL** 25 MG TAB PO ×2 (01:20→09:48)
[2017-07-27 01:42] LABS: CREATININE,RANDOM URINE 66.9 MG/DL; SODIUM,RANDOM URINE 78 MEQ/L
[2017-07-27] MEDS: LEVOTHYROXINE 50MCG TABLET (0.05MG) PO (05:59)
[2017-07-27] MEDS: NS 1,000 ML IV (05:59)
[2017-07-27] MEDS: HEPARIN SOD (PORCINE) 5000 UNITS/ML VIAL SC (06:00)
[2017-07-27 07:04] LABS: HEMATOCRIT 31.5 % (42.0-52.0); HEMOGLOBIN 10.5 g/dl (14.0-18.0); MEAN CORPUSCULAR HEMOGLOBIN 29.7 pg (27.0-33.0); MEAN CORPUSCULAR HGB CONC 33.3 g/dl (32.0-36.5); MEAN CORPUSCULAR VOLUME 89.2 fl (80.0-96.0); PLATELET COUNT, AUTOMATED 267 10^3/uL (150-450); RED BLOOD COUNT 3.53 10^6/uL (4.30-6.10); RED CELL DISTRIBUTION WIDTH 12.8 % (11.5-14.5); WHITE BLOOD COUNT 8.9 10^3/uL (4.0-10.0)
[2017-07-27 07:20] LABS: ANION GAP 8 MEQ/L (8-16); BLOOD UREA NITROGEN 26 MG/DL (7-18); CALCIUM LEVEL 7.7 MG/DL (8.5-10.1); CARBON DIOXIDE LEVEL 21 MEQ/L (21-32); CHLORIDE LEVEL 110 MEQ/L (98-107); CREATININE FOR GFR 2.92 MG/DL (0.70-1.30); GLOMERULAR FILTRATION RATE 24.9 (>60); GLUCOSE, FASTING 217 MG/DL (70-100); POTASSIUM SERUM 4.4 MEQ/L (3.5-5.1); SODIUM LEVEL 139 MEQ/L (136-145)
[2017-07-27] MEDS: TAMSULOSIN 0.4 MG CAP PO (08:27)
[2017-07-27] MEDS: METOCLOPRAMIDE 10 MG TAB PO (08:27)
[2017-07-27] MEDS: HumaLOG INSULIN (NovoLOG) PER UNIT SC ×2 (08:28→13:13)
[2017-07-27] MEDS: ATORVASTATIN 20 MG TAB PO (08:28)
[2017-07-27] MEDS: LEVEMIR (INSULIN DETEMIR) 1 UNITS/0.01ML SC (08:29)
[2017-07-27] MEDS: amLODIPine 10 MG TAB PO (09:48)
[2017-07-27] MEDS: ASPIRIN 81 MG ENTERIC TAB PO (09:48)
[2017-07-27] MEDS: ATENOLOL 25 MG TAB PO (09:48)
[2017-07-27] MEDS: FIBER-CON 625 MG TAB PO (09:48)
[2017-07-28 09:02] LABS: BEDSIDE GLUCOSE 190 MG/DL (70-105)
== END 2017-07-27 14:30 | disposition home or self-care (01) | DRG 638 ==
LOC: M PED 07-27 01:04 → M MSPAV 07-22 14:23 → M ED 14:43 → M ED INP 17:10
PROVIDERS: Hospitalist
DX: E11.10 Type 2 diabetes mellitus with ketoacidosis without coma (principal); E87.1 Hypo-osmolality and hyponatremia; N17.9 Acute kidney failure, unspecified; E11.65 Type 2 diabetes mellitus with hyperglycemia; I10 Essential (primary) hypertension; E03.9 Hypothyroidism, unspecified; E87.5 Hyperkalemia; R33.9 Retention of urine, unspecified; N40.1 Benign prostatic hyperplasia with lower urinary tract symptoms; E78.5 Hyperlipidemia, unspecified; Z91.14 Patient's other noncompliance with medication regimen; Z90.49 Acquired absence of other specified parts of digestive tract; Z79.82 Long term (current) use of aspirin; Z79.4 Long term (current) use of insulin; Z79.899 Other long term (current) drug therapy

== ENCOUNTER → 2017-07-30 | Outpatient (CLI) | payer MEDICARE, MEDICAID ==
[2017-07-30 18:40] LABS: BASO % 0.3 % (0.0-1.0); EOS # 0.3 10^3/uL (0.0-0.50); HEMATOCRIT 35.6 % (42.0-52.0); HEMOGLOBIN 11.5 g/dl (14.0-18.0); IMMATURE GRANULOCYTE % 0.7 % (0-3.0); LYMPH # 1.2 10^3/uL (1.5-4.5); LYMPH % 11.1 % (24.0-44.0); MEAN CORPUSCULAR HEMOGLOBIN 30.3 pg (27.0-33.0); MEAN CORPUSCULAR HGB CONC 32.3 g/dl (32.0-36.5); MEAN CORPUSCULAR VOLUME 93.9 fl (80.0-96.0); MONO # 1.2 10^3/uL (0.0-0.8); MONO % 10.9 % (0.0-5.0); NEUTROPHILS # 7.8 10^3/uL (1.8-7.7); PLATELET COUNT, AUTOMATED 398 10^3/uL (150-450); RED BLOOD COUNT 3.79 10^6/uL (4.30-6.10); RED CELL DISTRIBUTION WIDTH 13.1 % (11.5-14.5); WHITE BLOOD COUNT 10.6 10^3/uL (4.0-10.0)
[2017-07-30 18:58] LABS: ALBUMIN 2.3 GM/DL (3.2-5.2); ALKALINE PHOSPHATASE 135 U/L (45-117); ALT/SGPT 43 U/L (12-78); ANION GAP 6 MEQ/L (8-16); AST/SGOT 31 U/L (7-37); BILIRUBIN,TOTAL 0.3 MG/DL (0.2-1.0); BLOOD UREA NITROGEN 29 MG/DL (7-18); CALCIUM LEVEL 8.5 MG/DL (8.5-10.1); CARBON DIOXIDE LEVEL 28 MEQ/L (21-32); CHLORIDE LEVEL 107 MEQ/L (98-107); GLOMERULAR FILTRATION RATE 23.2 (>60); GLUCOSE, FASTING 171 MG/DL (70-100); SODIUM LEVEL 141 MEQ/L (136-145); TOTAL PROTEIN 5.6 GM/DL (6.4-8.2)
[2017-07-30 19:02] LABS: POTASSIUM SERUM 5.8 MEQ/L (3.5-5.1)
== END ==
LOC: M SMT 15:35
DX: I10 Essential (primary) hypertension (principal)
CPT/HCPCS: 80053

== ENCOUNTER 2017-08-05 17:41 | Inpatient (IN) | payer MEDICARE, MEDICAID ==
[2017-08-05 19:29] LABS: BASO # 0.1 10^3/uL (0.0-0.2); BASO % 0.2 % (0.0-1.0); HEMATOCRIT 32.4 % (42.0-52.0); HEMOGLOBIN 10.7 g/dl (14.0-18.0); IMMATURE GRANULOCYTE % 1.9 % (0-3.0); LYMPH # 1.1 10^3/uL (1.5-4.5); LYMPH % 3.2 % (24.0-44.0); MEAN CORPUSCULAR HEMOGLOBIN 30.2 pg (27.0-33.0); MEAN CORPUSCULAR VOLUME 91.5 fl (80.0-96.0); MONO % 7.7 % (0.0-5.0); PLATELET COUNT, AUTOMATED 314 10^3/uL (150-450); RED BLOOD COUNT 3.54 10^6/uL (4.30-6.10); RED CELL DISTRIBUTION WIDTH 12.7 % (11.5-14.5)
[2017-08-05 20:00] LABS: ANION GAP 13 MEQ/L (8-16); BLOOD UREA NITROGEN 31 MG/DL (7-18); CALCIUM LEVEL 8.4 MG/DL (8.5-10.1); CARBON DIOXIDE LEVEL 21 MEQ/L (21-32); CHLORIDE LEVEL 100 MEQ/L (98-107); CREATININE FOR GFR 4.25 MG/DL (0.70-1.30); GLOMERULAR FILTRATION RATE 16.1 (>60); GLUCOSE, FASTING 183 MG/DL (70-100); MONO # 2.7 10^3/uL (0.0-0.8); NEUTROPHILS # 30.4 10^3/uL (1.8-7.7); POS COUNT POS FLAG; POSITIVE DIFF POS FLAG; POTASSIUM SERUM 4.4 MEQ/L (3.5-5.1); SODIUM LEVEL 134 MEQ/L (136-145)
[2017-08-05 20:28] LABS: KETONE, URINE AUTO RFX NEGATIVE (NEGATIVE); MUCUS, URINE RFX SMALL (NEGATIVE); NITRITE, URINE AUTO RFX NEGATIVE (NEGATIVE); RBC, URINE AUTO RFX 16 /HPF (0-3); SPECIFIC GRAVITY UR AUTO RFX 1.005 (1.002-1.035); SQUAM EPITHELIAL CELL UR AURFX 0 /HPF (0-6)
[2017-08-05 20:36] LABS: ACETONE/KETONE 0.76 MG/DL (<2.81); CPK CREATINE PHOSPHOKINASE 80 U/L (39-308); MB/CK RELATIVE INDEX 1.25 (< OR =4); TROPONIN I < 0.02 NG/ML (< 0.10)
[2017-08-05 20:51] LABS: ALBUMIN/GLOBULIN RATIO 0.59 (1.00-1.93); ALKALINE PHOSPHATASE 120 U/L (45-117); ALT/SGPT 17 U/L (12-78); AST/SGOT 11 U/L (7-37); BILIRUBIN,DIRECT 0.2 MG/DL (0.0-0.2); BILIRUBIN,TOTAL 0.7 MG/DL (0.2-1.0); TOTAL PROTEIN 5.4 GM/DL (6.4-8.2)
[2017-08-05 21:02] LABS: BEDSIDE GLUCOSE 165 MG/DL (70-105)
[2017-08-05 21:10] LABS: LEUKOCYTE ESTERASE UR AUTO RFX 2+ (NEGATIVE); WBC, URINE AUTO RFX 135 /HPF (0-3)
[2017-08-05 21:27] LABS: LACTIC ACID SEPSIS PROTOCOL 2.7 MMOL/L (0.4-2.0)
[2017-08-05] MEDS: CEFTRIAXONE SOD 2 GM in APPROPRIATE DILUENT 1 EA IV (21:30)
[2017-08-05] MEDS: NS 1,000 ML IV (22:00)
[2017-08-05] MEDS ORDERED: GLUCOSE 4 GM CHEW TABLET PO (22:15)
[2017-08-05] MEDS ORDERED: GLUCAGON FOR INJ 1 MG VIAL (J1610) SC (22:15)
[2017-08-05] MEDS ORDERED: DEXTROSE 50% 50 ML SYRINGE IV (22:15)
[2017-08-05] MEDS: HumaLOG INSULIN (NovoLOG) PER UNIT SC (22:51)
[2017-08-05] MEDS: AMITRIPTYLINE 25 MG TAB PO (23:19)
[2017-08-05] MEDS: POTASSIUM CHLORIDE 10 MEQ SR TABLET PO (23:19)
[2017-08-05] MEDS: TAMSULOSIN 0.4 MG CAP PO (23:19)
[2017-08-06] MEDS: VANCOMYCIN HCL 1,000 MG, VIAL MATE ADAPTER 1 EACH in D5W 250 ML IV (00:31)
[2017-08-06 06:39] LABS: BEDSIDE GLUCOSE 373 MG/DL (70-105)
[2017-08-06] MEDS ORDERED: LEVOTHYROXINE 50MCG TABLET (0.05MG) PO (09:00)
[2017-08-06] MEDS: HumaLOG INSULIN (NovoLOG) PER UNIT SC ×4 (09:01→20:52)
[2017-08-06] MEDS: LEVOTHYROXINE 50MCG TABLET (0.05MG) PO (09:01)
[2017-08-06] MEDS: LEVEMIR (INSULIN DETEMIR) 1 UNITS/0.01ML SC ×2 (09:01→20:53)
[2017-08-06] MEDS: TAMSULOSIN 0.4 MG CAP PO ×2 (09:01→20:52)
[2017-08-06] MEDS: ATORVASTATIN 20 MG TAB PO (09:02)
[2017-08-06] MEDS: ATENOLOL 25 MG TAB PO (09:02)
[2017-08-06] MEDS: ASPIRIN 81 MG ENTERIC TAB PO (09:02)
[2017-08-06] MEDS: FIBER-CON 625 MG TAB PO (09:02)
[2017-08-06] MEDS: POTASSIUM CHLORIDE 10 MEQ SR TABLET PO (09:02)
[2017-08-06 10:03] LABS: HEMATOCRIT 31.5 % (42.0-52.0); HEMOGLOBIN 10.2 g/dl (14.0-18.0); MEAN CORPUSCULAR HEMOGLOBIN 29.5 pg (27.0-33.0); MEAN CORPUSCULAR HGB CONC 32.4 g/dl (32.0-36.5); PLATELET COUNT, AUTOMATED 319 10^3/uL (150-450); RED BLOOD COUNT 3.46 10^6/uL (4.30-6.10); RED CELL DISTRIBUTION WIDTH 12.6 % (11.5-14.5); WHITE BLOOD COUNT 25.7 10^3/uL (4.0-10.0)
[2017-08-06 10:25] LABS: ALBUMIN 1.7 GM/DL (3.2-5.2); ALBUMIN/GLOBULIN RATIO 0.55 (1.00-1.93); ALKALINE PHOSPHATASE 106 U/L (45-117); ALT/SGPT 14 U/L (12-78); ANION GAP 13 MEQ/L (8-16); AST/SGOT 8 U/L (7-37); BILIRUBIN,TOTAL 0.4 MG/DL (0.2-1.0); BLOOD UREA NITROGEN 39 MG/DL (7-18); CALCIUM LEVEL 7.7 MG/DL (8.5-10.1); CARBON DIOXIDE LEVEL 20 MEQ/L (21-32); CHLORIDE LEVEL 99 MEQ/L (98-107); CREATININE FOR GFR 3.97 MG/DL (0.70-1.30); GLOMERULAR FILTRATION RATE 17.4 (>60); MAGNESIUM LEVEL 2.4 MG/DL (1.8-2.4); PHOSPHORUS LEVEL 4.5 MG/DL (2.5-4.9); POTASSIUM SERUM 4.9 MEQ/L (3.5-5.1); SODIUM LEVEL 132 MEQ/L (136-145); TOTAL PROTEIN 4.8 GM/DL (6.4-8.2)
[2017-08-06 10:29] LABS: GLUCOSE, FASTING 459 MG/DL (70-100)
[2017-08-06 11:47] LABS: BEDSIDE GLUCOSE 338 MG/DL (70-105)
[2017-08-06] MEDS: NS 1,000 ML IV ×3 (12:02→20:53)
[2017-08-06 12:54] LABS: CHLORIDE,RANDOM URINE 51 MEQ/L; CREATININE,RANDOM URINE 32.4 MG/DL; SODIUM,RANDOM URINE 53 MEQ/L; TOTAL PROTEIN,RANDOM URINE 160.9 MG/DL (0.0-12.0)
[2017-08-06 13:19] LABS: OSMOLALITY URINE 314 MOSM/KG (500-800)
[2017-08-06 16:13] LABS: REASON FOR REVIEW OTHER; SLIDE REVIEW Report; SOURCE PERIPHERAL SMEAR
[2017-08-06 16:53] LABS: BEDSIDE GLUCOSE 93 MG/DL (70-105)
[2017-08-06 17:40] LABS: ANION GAP 10 MEQ/L (8-16); BLOOD UREA NITROGEN 37 MG/DL (7-18); CALCIUM LEVEL 7.8 MG/DL (8.5-10.1); CARBON DIOXIDE LEVEL 21 MEQ/L (21-32); CHLORIDE LEVEL 104 MEQ/L (98-107); CREATININE FOR GFR 3.52 MG/DL (0.70-1.30); GLUCOSE, FASTING 138 MG/DL (70-100); POTASSIUM SERUM 4.8 MEQ/L (3.5-5.1); SODIUM LEVEL 135 MEQ/L (136-145)
[2017-08-06] MEDS: ACETAMINOPHEN TAB 650MG DOSE (2X325MG) PO (19:03)
[2017-08-06] MEDS: AMITRIPTYLINE 25 MG TAB PO (20:52)
[2017-08-06] MEDS: FINASTERIDE 5 MG TAB PO (20:52)
[2017-08-06] MEDS: HEPARIN SOD (PORCINE) 5000 UNITS/ML VIAL SQ (20:52)
[2017-08-06 20:56] LABS: ANION GAP 8 MEQ/L (8-16); BLOOD UREA NITROGEN 37 MG/DL (7-18); CALCIUM LEVEL 7.7 MG/DL (8.5-10.1); CARBON DIOXIDE LEVEL 23 MEQ/L (21-32); CHLORIDE LEVEL 104 MEQ/L (98-107); CREATININE FOR GFR 3.56 MG/DL (0.70-1.30); GLOMERULAR FILTRATION RATE 19.8 (>60); GLUCOSE, FASTING 55 MG/DL (70-100); POTASSIUM SERUM 4.5 MEQ/L (3.5-5.1); SODIUM LEVEL 135 MEQ/L (136-145)
[2017-08-06 21:24] LABS: BEDSIDE GLUCOSE 70 MG/DL (70-105)
[2017-08-07] MEDS: ACETAMINOPHEN TAB 650MG DOSE (2X325MG) PO (00:25)
[2017-08-07] MEDS: MEROPENEM INJ 1 GM in APPROPRIATE DILUENT 1 EA IV (01:21)
[2017-08-07] MEDS: NS 1,000 ML IV ×3 (05:29→21:13)
[2017-08-07] MEDS: LEVOTHYROXINE 50MCG TABLET (0.05MG) PO (05:30)
[2017-08-07] MEDS: HumaLOG INSULIN (NovoLOG) PER UNIT SC ×4 (07:30→20:07)
[2017-08-07 08:00] LABS: BEDSIDE GLUCOSE 100 MG/DL (70-105)
[2017-08-07 08:17] LABS: HEMATOCRIT 31.8 % (42.0-52.0); HEMOGLOBIN 10.5 g/dl (14.0-18.0); MEAN CORPUSCULAR HEMOGLOBIN 29.5 pg (27.0-33.0); MEAN CORPUSCULAR VOLUME 89.3 fl (80.0-96.0); PLATELET COUNT, AUTOMATED 327 10^3/uL (150-450); RED BLOOD COUNT 3.56 10^6/uL (4.30-6.10); RED CELL DISTRIBUTION WIDTH 12.5 % (11.5-14.5); WHITE BLOOD COUNT 25.3 10^3/uL (4.0-10.0)
[2017-08-07 08:40] LABS: ALBUMIN 1.7 GM/DL (3.2-5.2); ANION GAP 8 MEQ/L (8-16); BLOOD UREA NITROGEN 34 MG/DL (7-18); C REACTIVE PROTEIN QUANTITATIV 9.56 MG/DL (0.00-0.30); CALCIUM LEVEL 7.6 MG/DL (8.5-10.1); CARBON DIOXIDE LEVEL 23 MEQ/L (21-32); CHLORIDE LEVEL 106 MEQ/L (98-107); CREATININE FOR GFR 3.47 MG/DL (0.70-1.30); GLOMERULAR FILTRATION RATE 20.4 (>60); GLUCOSE, FASTING 150 MG/DL (70-100); MAGNESIUM LEVEL 2.3 MG/DL (1.8-2.4); PHOSPHORUS LEVEL 3.8 MG/DL (2.5-4.9); POTASSIUM SERUM 4.7 MEQ/L (3.5-5.1); SODIUM LEVEL 137 MEQ/L (136-145)
[2017-08-07] MEDS: LEVEMIR (INSULIN DETEMIR) 1 UNITS/0.01ML SC (09:00)
[2017-08-07] MEDS: ATORVASTATIN 20 MG TAB PO (09:09)
[2017-08-07] MEDS: FIBER-CON 625 MG TAB PO (09:09)
[2017-08-07] MEDS: TAMSULOSIN 0.4 MG CAP PO ×2 (09:09→20:14)
[2017-08-07] MEDS: ASPIRIN 81 MG ENTERIC TAB PO (09:10)
[2017-08-07] MEDS: ATENOLOL 25 MG TAB PO (09:10)
[2017-08-07] MEDS: HEPARIN SOD (PORCINE) 5000 UNITS/ML VIAL SQ ×2 (09:11→20:14)
[2017-08-07] MEDS ORDERED: VANCOMYCIN HCL 1,000 MG, VIAL MATE ADAPTER 1 EACH in D5W 250 ML IV ×2 (10:00)
[2017-08-07] MEDS: CEFTRIAXONE SOD 1 GM in APPROPRIATE DILUENT 1 EA IV (11:15)
[2017-08-07 11:50] LABS: BEDSIDE GLUCOSE 303 MG/DL (70-105)
[2017-08-07 16:28] LABS: BEDSIDE GLUCOSE 52 MG/DL (70-105)
[2017-08-07 17:08] LABS: BEDSIDE GLUCOSE 60 MG/DL (70-105)
[2017-08-07] MEDS: FINASTERIDE 5 MG TAB PO (20:14)
[2017-08-07] MEDS: AMITRIPTYLINE 25 MG TAB PO (20:14)
[2017-08-07 21:09] LABS: BEDSIDE GLUCOSE 94 MG/DL (70-105)
[2017-08-08] MEDS: NS 1,000 ML IV (05:33)
[2017-08-08] MEDS: LEVOTHYROXINE 50MCG TABLET (0.05MG) PO (05:33)
[2017-08-08 07:03] LABS: HEMATOCRIT 31.1 % (42.0-52.0); HEMOGLOBIN 10.1 g/dl (14.0-18.0); MEAN CORPUSCULAR HEMOGLOBIN 29.6 pg (27.0-33.0); MEAN CORPUSCULAR HGB CONC 32.5 g/dl (32.0-36.5); MEAN CORPUSCULAR VOLUME 91.2 fl (80.0-96.0); PLATELET COUNT, AUTOMATED 306 10^3/uL (150-450); RED BLOOD COUNT 3.41 10^6/uL (4.30-6.10); RED CELL DISTRIBUTION WIDTH 12.7 % (11.5-14.5); WHITE BLOOD COUNT 13.5 10^3/uL (4.0-10.0)
[2017-08-08 07:30] LABS: ALBUMIN 1.5 GM/DL (3.2-5.2); ANION GAP 8 MEQ/L (8-16); BLOOD UREA NITROGEN 32 MG/DL (7-18); C REACTIVE PROTEIN QUANTITATIV 7.13 MG/DL (0.00-0.30); CALCIUM LEVEL 7.3 MG/DL (8.5-10.1); CARBON DIOXIDE LEVEL 21 MEQ/L (21-32); CHLORIDE LEVEL 108 MEQ/L (98-107); GLOMERULAR FILTRATION RATE 23.2 (>60); GLUCOSE, FASTING 298 MG/DL (70-100); MAGNESIUM LEVEL 2.4 MG/DL (1.8-2.4); SODIUM LEVEL 137 MEQ/L (136-145); VANCOMYCIN RANDOM 3.3 UG/ML
[2017-08-08 07:32] LABS: COMPLEMENT C3 111 MG/DL (90-180); COMPLEMENT C4 31.8 MG/DL (10-40); TOTAL PROTEIN 4.7 GM/DL (6.4-8.2)
[2017-08-08 07:42] LABS: POTASSIUM SERUM 6.3 MEQ/L (3.5-5.1)
[2017-08-08] MEDS: SOD POLYSTYRENE SULFONATE SUSP 15 GM/60 ML UD PO (09:00)
[2017-08-08] MEDS: HumaLOG INSULIN (NovoLOG) PER UNIT SC ×4 (09:01→21:00)
[2017-08-08] MEDS: TAMSULOSIN 0.4 MG CAP PO ×2 (09:02→21:43)
[2017-08-08] MEDS: CEFTRIAXONE SOD 1 GM in APPROPRIATE DILUENT 1 EA IV (09:02)
[2017-08-08] MEDS: HEPARIN SOD (PORCINE) 5000 UNITS/ML VIAL SQ ×2 (09:02→21:43)
[2017-08-08] MEDS: LEVEMIR (INSULIN DETEMIR) 1 UNITS/0.01ML SC (09:02)
[2017-08-08] MEDS: ASPIRIN 81 MG ENTERIC TAB PO (09:03)
[2017-08-08] MEDS: ATORVASTATIN 20 MG TAB PO (09:03)
[2017-08-08] MEDS: ATENOLOL 25 MG TAB PO (09:03)
[2017-08-08] MEDS: FIBER-CON 625 MG TAB PO (09:03)
[2017-08-08 10:50] LABS: POTASSIUM SERUM 5.6 MEQ/L (3.5-5.1)
[2017-08-08 16:34] LABS: ANION GAP 7 MEQ/L (8-16); BLOOD UREA NITROGEN 31 MG/DL (7-18); CALCIUM LEVEL 8.3 MG/DL (8.5-10.1); CARBON DIOXIDE LEVEL 23 MEQ/L (21-32); CHLORIDE LEVEL 109 MEQ/L (98-107); CREATININE FOR GFR 2.95 MG/DL (0.70-1.30); GLOMERULAR FILTRATION RATE 24.6 (>60); GLUCOSE, FASTING 48 MG/DL (70-100); POTASSIUM SERUM 4.8 MEQ/L (3.5-5.1); SODIUM LEVEL 139 MEQ/L (136-145)
[2017-08-08 19:56] LABS: BEDSIDE GLUCOSE 302 MG/DL (70-105)
[2017-08-08 19:56] LABS: BEDSIDE GLUCOSE 42 MG/DL (70-105)
[2017-08-08 21:28] LABS: BEDSIDE GLUCOSE 102 MG/DL (70-105)
[2017-08-08] MEDS: FINASTERIDE 5 MG TAB PO (21:43)
[2017-08-08] MEDS: AMITRIPTYLINE 25 MG TAB PO (21:43)
[2017-08-09] MEDS: LEVOTHYROXINE 50MCG TABLET (0.05MG) PO (06:38)
[2017-08-09 07:20] LABS: HEMATOCRIT 32.9 % (42.0-52.0); HEMOGLOBIN 10.9 g/dl (14.0-18.0); MEAN CORPUSCULAR HEMOGLOBIN 29.5 pg (27.0-33.0); MEAN CORPUSCULAR HGB CONC 33.1 g/dl (32.0-36.5); MEAN CORPUSCULAR VOLUME 89.2 fl (80.0-96.0); PLATELET COUNT, AUTOMATED 354 10^3/uL (150-450); RED BLOOD COUNT 3.69 10^6/uL (4.30-6.10); RED CELL DISTRIBUTION WIDTH 12.8 % (11.5-14.5); WHITE BLOOD COUNT 10.4 10^3/uL (4.0-10.0)
[2017-08-09 07:52] LABS: ALBUMIN 1.7 GM/DL (3.2-5.2); ANION GAP 9 MEQ/L (8-16); BLOOD UREA NITROGEN 28 MG/DL (7-18); C REACTIVE PROTEIN QUANTITATIV 5.14 MG/DL (0.00-0.30); CALCIUM LEVEL 8.3 MG/DL (8.5-10.1); CARBON DIOXIDE LEVEL 22 MEQ/L (21-32); CHLORIDE LEVEL 105 MEQ/L (98-107); CREATININE FOR GFR 2.95 MG/DL (0.70-1.30); GLOMERULAR FILTRATION RATE 24.6 (>60); GLUCOSE, FASTING 254 MG/DL (70-100); MAGNESIUM LEVEL 2.4 MG/DL (1.8-2.4); SODIUM LEVEL 136 MEQ/L (136-145)
[2017-08-09] MEDS: FIBER-CON 625 MG TAB PO (08:34)
[2017-08-09] MEDS: ATENOLOL 25 MG TAB PO (08:34)
[2017-08-09] MEDS: ATORVASTATIN 20 MG TAB PO (08:34)
[2017-08-09] MEDS: TAMSULOSIN 0.4 MG CAP PO ×2 (08:34→21:14)
[2017-08-09] MEDS: ASPIRIN 81 MG ENTERIC TAB PO (08:34)
[2017-08-09] MEDS: HumaLOG INSULIN (NovoLOG) PER UNIT SC ×4 (08:35→21:00)
[2017-08-09] MEDS: LEVEMIR (INSULIN DETEMIR) 1 UNITS/0.01ML SC (08:36)
[2017-08-09] MEDS: HEPARIN SOD (PORCINE) 5000 UNITS/ML VIAL SQ ×2 (08:36→21:15)
[2017-08-09] MEDS: CEFTRIAXONE SOD 1 GM in APPROPRIATE DILUENT 1 EA IV (10:33)
[2017-08-09 12:03] LABS: BEDSIDE GLUCOSE 34 MG/DL (70-105)
[2017-08-09 12:04] LABS: BEDSIDE GLUCOSE 160 MG/DL (70-105)
[2017-08-09 12:04] LABS: BEDSIDE GLUCOSE 64 MG/DL (70-105)
[2017-08-09] MEDS: FINASTERIDE 5 MG TAB PO (21:14)
[2017-08-09] MEDS: AMITRIPTYLINE 25 MG TAB PO (21:14)
[2017-08-10 06:31] LABS: HEMATOCRIT 32.8 % (42.0-52.0); HEMOGLOBIN 10.6 g/dl (14.0-18.0); MEAN CORPUSCULAR HEMOGLOBIN 29.1 pg (27.0-33.0); MEAN CORPUSCULAR HGB CONC 32.3 g/dl (32.0-36.5); MEAN CORPUSCULAR VOLUME 90.1 fl (80.0-96.0); PLATELET COUNT, AUTOMATED 341 10^3/uL (150-450); RED BLOOD COUNT 3.64 10^6/uL (4.30-6.10); RED CELL DISTRIBUTION WIDTH 12.4 % (11.5-14.5); WHITE BLOOD COUNT 10.5 10^3/uL (4.0-10.0)
[2017-08-10 06:47] LABS: ALBUMIN 1.7 GM/DL (3.2-5.2); ANION GAP 8 MEQ/L (8-16); BLOOD UREA NITROGEN 32 MG/DL (7-18); C REACTIVE PROTEIN QUANTITATIV 2.39 MG/DL (0.00-0.30); CARBON DIOXIDE LEVEL 22 MEQ/L (21-32); CHLORIDE LEVEL 103 MEQ/L (98-107); GLOMERULAR FILTRATION RATE 22.4 (>60); GLUCOSE, FASTING 396 MG/DL (70-100); MAGNESIUM LEVEL 2.3 MG/DL (1.8-2.4); PHOSPHORUS LEVEL 3.6 MG/DL (2.5-4.9); SODIUM LEVEL 133 MEQ/L (136-145)
[2017-08-10] MEDS: LEVOTHYROXINE 50MCG TABLET (0.05MG) PO (06:49)
[2017-08-10 06:50] LABS: POTASSIUM SERUM 5.6 MEQ/L (3.5-5.1)
[2017-08-10] MEDS: HumaLOG INSULIN (NovoLOG) PER UNIT SC ×4 (08:59→21:04)
[2017-08-10] MEDS: ATORVASTATIN 20 MG TAB PO (09:00)
[2017-08-10] MEDS: SOD POLYSTYRENE SULFONATE SUSP 15 GM/60 ML UD PO (09:00)
[2017-08-10] MEDS: SENOKOT S TAB PO ×2 (09:00→21:00)
[2017-08-10] MEDS: ASPIRIN 81 MG ENTERIC TAB PO (09:01)
[2017-08-10] MEDS: ATENOLOL 25 MG TAB PO (09:01)
[2017-08-10] MEDS: FIBER-CON 625 MG TAB PO (09:01)
[2017-08-10] MEDS: HEPARIN SOD (PORCINE) 5000 UNITS/ML VIAL SQ ×2 (09:01→21:03)
[2017-08-10] MEDS: TAMSULOSIN 0.4 MG CAP PO ×2 (09:01→21:03)
[2017-08-10] MEDS: LEVEMIR (INSULIN DETEMIR) 1 UNITS/0.01ML SC (09:02)
[2017-08-10] MEDS: CEFTRIAXONE SOD 1 GM in APPROPRIATE DILUENT 1 EA IV (09:02)
[2017-08-10 12:11] LABS: BEDSIDE GLUCOSE 50 MG/DL (70-105)
[2017-08-10 12:11] LABS: BEDSIDE GLUCOSE 206 MG/DL (70-105)
[2017-08-10] MEDS: TORSEMIDE 5MG TABLET PO (12:19)
[2017-08-10 13:06] LABS: HEPATITIS B SURFACE ANTIBODY NEGATIVE (POSITIVE)
[2017-08-10 13:16] LABS: HEPATITIS B SURFACE ANTIGEN NEGATIVE (NEGATIVE)
[2017-08-10 13:45] LABS: HEPATITIS C VIRUS ABY INDEX 0.1 INDEX (<0.8)
[2017-08-10 13:45] LABS: HIV 1&2 SCREEN CENTAUR NEGATIVE (NEGATIVE)
[2017-08-10 14:23] LABS: ANION GAP 11 MEQ/L (8-16); BLOOD UREA NITROGEN 36 MG/DL (7-18); CALCIUM LEVEL 8.2 MG/DL (8.5-10.1); CARBON DIOXIDE LEVEL 20 MEQ/L (21-32); CHLORIDE LEVEL 108 MEQ/L (98-107); CREATININE FOR GFR 3.18 MG/DL (0.70-1.30); GLOMERULAR FILTRATION RATE 22.5 (>60); GLUCOSE, FASTING 51 MG/DL (70-100); POTASSIUM SERUM 4.9 MEQ/L (3.5-5.1); SODIUM LEVEL 139 MEQ/L (136-145)
[2017-08-10 17:34] LABS: BEDSIDE GLUCOSE 306 MG/DL (70-105)
[2017-08-10] MEDS: FINASTERIDE 5 MG TAB PO (21:03)
[2017-08-10] MEDS: AMITRIPTYLINE 25 MG TAB PO (21:03)
[2017-08-10 21:52] LABS: BEDSIDE GLUCOSE 52 MG/DL (70-105)
[2017-08-10 21:52] LABS: BEDSIDE GLUCOSE 43 MG/DL (70-105)
[2017-08-11] MEDS: LEVOTHYROXINE 50MCG TABLET (0.05MG) PO (05:55)
[2017-08-11 06:26] LABS: HEMATOCRIT 34.2 % (42.0-52.0); HEMOGLOBIN 11.1 g/dl (14.0-18.0); MEAN CORPUSCULAR HEMOGLOBIN 29.3 pg (27.0-33.0); MEAN CORPUSCULAR HGB CONC 32.5 g/dl (32.0-36.5); MEAN CORPUSCULAR VOLUME 90.2 fl (80.0-96.0); PLATELET COUNT, AUTOMATED 389 10^3/uL (150-450); RED BLOOD COUNT 3.79 10^6/uL (4.30-6.10); RED CELL DISTRIBUTION WIDTH 12.4 % (11.5-14.5); WHITE BLOOD COUNT 9.8 10^3/uL (4.0-10.0)
[2017-08-11 06:46] LABS: ALBUMIN 1.8 GM/DL (3.2-5.2); ANION GAP 8 MEQ/L (8-16); BLOOD UREA NITROGEN 36 MG/DL (7-18); C REACTIVE PROTEIN QUANTITATIV 1.53 MG/DL (0.00-0.30); CARBON DIOXIDE LEVEL 23 MEQ/L (21-32); CHLORIDE LEVEL 102 MEQ/L (98-107); CREATININE FOR GFR 3.08 MG/DL (0.70-1.30); GLOMERULAR FILTRATION RATE 23.4 (>60); GLUCOSE, FASTING 395 MG/DL (70-100); MAGNESIUM LEVEL 2.2 MG/DL (1.8-2.4); PHOSPHORUS LEVEL 3.8 MG/DL (2.5-4.9); SODIUM LEVEL 133 MEQ/L (136-145)
[2017-08-11 06:54] LABS: POTASSIUM SERUM 5.4 MEQ/L (3.5-5.1)
[2017-08-11] MEDS: FIBER-CON 625 MG TAB PO (08:50)
[2017-08-11] MEDS: SENOKOT S TAB PO (08:51)
[2017-08-11] MEDS: ATORVASTATIN 20 MG TAB PO (08:51)
[2017-08-11] MEDS: TORSEMIDE 5MG TABLET PO (08:51)
[2017-08-11] MEDS: ATENOLOL 25 MG TAB PO (08:51)
[2017-08-11] MEDS: HEPARIN SOD (PORCINE) 5000 UNITS/ML VIAL SQ (08:52)
[2017-08-11] MEDS: TAMSULOSIN 0.4 MG CAP PO (08:52)
[2017-08-11] MEDS: ASPIRIN 81 MG ENTERIC TAB PO (08:52)
[2017-08-11] MEDS: HumaLOG INSULIN (NovoLOG) PER UNIT SC ×2 (08:53→12:46)
[2017-08-11] MEDS: LEVEMIR (INSULIN DETEMIR) 1 UNITS/0.01ML SC (08:53)
[2017-08-11] MEDS: CEFTRIAXONE SOD 1 GM in APPROPRIATE DILUENT 1 EA IV (08:53)
[2017-08-11] MEDS ORDERED: LEVEMIR (INSULIN DETEMIR) 1 UNITS/0.01ML SC (09:00)
[2017-08-11] MEDS: SOD POLYSTYRENE SULFONATE SUSP 15 GM/60 ML UD PO (11:00)
[2017-08-11 11:14] LABS: ESTIMATED AVERAGE GLUCOSE 223 MG/DL (60-110); HEMOGLOBIN A1c 9.4 %
[2017-08-11 12:00] LABS: BEDSIDE GLUCOSE 280 MG/DL (70-105)
[2017-08-11 13:33] LABS: ALBUMIN 1.92 GM/DL (3.29-5.55); ALBUMIN % 40.9 % (55.8-66.1); ALPHA-1-GLOBULIN % 10.8 % (2.9-4.9); ALPHA-1-GLOBULINS 0.51 GM/DL (0.17-0.41); ALPHA-2-GLOBULINS 0.98 GM/DL (0.42-0.99); ALPHA-2-GLOBULINS % 20.8 % (7.1-11.8); BETA-1-GLOBULINS 0.36 GM/DL (0.28-0.60); BETA-1-GLOBULINS % 7.7 % (4.7-7.2); BETA-2-GLOBULINS 0.39 GM/DL (0.19-0.55); BETA-2-GLOBULINS % 8.2 % (3.2-6.5)
[2017-08-11 13:34] LABS: GAMMA GLOBULIN % 11.6 % (11.1-18.8); GAMMA GLOBULINS 0.55 GM/DL (0.65-1.58)
[2017-08-11 16:49] LABS: BEDSIDE GLUCOSE 76 MG/DL (70-105)
[2017-08-11 16:49] LABS: BEDSIDE GLUCOSE 278 MG/DL (70-105)
[2017-08-12 00:06] LABS: ANA (HEP2) Negative (.); ANCA-ATYPICAL <1:20 titer (Neg:<1:20); CYTOPLASMIC NEUTROP AB ANCA-C <1:20 titer (Neg:<1:20); PERINUCLEAR AB ANCA-P <1:20 titer (Neg:<1:20)
[2017-08-13 08:04] LABS: URINE TOTAL PROTEIN 152.3 MG/DL (0-12)
[2017-08-13 13:18] LABS: UPEP INTERPRETATION NO M-SPIKE NOTED; URINE VOLUME RANDOM ML
== END 2017-08-11 14:47 | disposition home or self-care (01) | DRG 698 ==
LOC: M MSPAV 08-06 13:58 → M ED 17:41 → M MSPAV 08-06 14:19 → M ED INP 22:10
DX: T83.511A Infection and inflammatory reaction due to indwelling urethral catheter, initial encounter (principal); A41.9 Sepsis, unspecified organism; N17.9 Acute kidney failure, unspecified; E87.1 Hypo-osmolality and hyponatremia; N18.4 Chronic kidney disease, stage 4 (severe); E11.65 Type 2 diabetes mellitus with hyperglycemia; E03.9 Hypothyroidism, unspecified; E78.5 Hyperlipidemia, unspecified; I12.9 Hypertensive chronic kidney disease with stage 1 through stage 4 chronic kidney disease, or unspecified chronic kidney disease; R33.9 Retention of urine, unspecified; E87.5 Hyperkalemia; D63.1 Anemia in chronic kidney disease; N31.9 Neuromuscular dysfunction of bladder, unspecified; B95.61 Methicillin susceptible Staphylococcus aureus infection as the cause of diseases classified elsewhere; E11.22 Type 2 diabetes mellitus with diabetic chronic kidney disease; N40.1 Benign prostatic hyperplasia with lower urinary tract symptoms; Y84.6 Urinary catheterization as the cause of abnormal reaction of the patient, or of later complication, without mention of misadventure at the time of the procedure; E11.21 Type 2 diabetes mellitus with diabetic nephropathy; B96.89 Other specified bacterial agents as the cause of diseases classified elsewhere; Z91.19 Patient's noncompliance with other medical treatment and regimen; Z79.82 Long term (current) use of aspirin; Z79.4 Long term (current) use of insulin; Z79.899 Other long term (current) drug therapy

== ENCOUNTER → 2017-09-07 | Outpatient (REF) | payer MEDICARE, MEDICAID ==
[2017-09-07 19:18] LABS: INR 0.89; PROTHROMBIN TIME 12.1 SECONDS (12.4-14.5)
== END ==
LOC: M LAB REF 16:49
DX: N18.4 Chronic kidney disease, stage 4 (severe) (principal); R80.9 Proteinuria, unspecified
CPT/HCPCS: 85610

== ENCOUNTER → 2017-09-28 | Outpatient (REF) | payer MEDICARE, MEDICAID ==
[2017-09-28 13:37] LABS: APPEARANCE, URINE CLEAR (CLEAR); BACTERIA, URINE AUTO NEGATIVE (NEGATIVE); BILIRUBIN, URINE AUTO NEGATIVE (NEGATIVE); BLOOD, URINE BLOOD NEGATIVE (NEGATIVE); COLOR, URINE STRAW (YELLOW); GLUCOSE, URINE (UA) AUTO 3+ mg/dL (NEGATIVE); KETONE, URINE AUTO TRACE mg/dL (NEGATIVE); LEUKOCYTE ESTERASE, URINE AUTO NEGATIVE (NEGATIVE); NITRITE, URINE AUTO NEGATIVE (NEGATIVE); PROTEIN, URINE AUTO 2+ mg/dL (NEGATIVE); RBC, URINE AUTO 1 /HPF (0-3); SPECIFIC GRAVITY URINE AUTO 1.011 (1.002-1.035); SQUAMOUS EPITHELIAL CELL UR AU 0 /HPF (0-6); UROBILINOGEN, URINE AUTO 0.2 mg/dL (0.0-2.0); WBC, URINE AUTO 2 /HPF (0-3)
== END ==
LOC: M SMT 12:57
DX: R33.9 Retention of urine, unspecified (principal)
CPT/HCPCS: 81001

== ENCOUNTER 2017-11-10 03:40 | Emergency (ER) | payer MEDICARE, MEDICAID ==
[2017-11-10] MEDS: DEXTROSE 50% 50 ML SYRINGE IV (03:45)
[2017-11-10 03:57] LABS: BASO # 0.1 10^3/uL (0.0-0.2); BASO % 0.5 % (0.0-1.0); EOS # 0.4 10^3/uL (0.0-0.50); EOS % 3.6 % (0.0-3.0); HEMATOCRIT 34.6 % (42.0-52.0); IMMATURE GRANULOCYTE % 1.7 % (0-3.0); LYMPH # 2.6 10^3/uL (1.5-4.5); LYMPH % 21.7 % (24.0-44.0); MEAN CORPUSCULAR HEMOGLOBIN 29.3 pg (27.0-33.0); MEAN CORPUSCULAR HGB CONC 31.8 g/dl (32.0-36.5); MEAN CORPUSCULAR VOLUME 92.3 fl (80.0-96.0); NEUTROPHILS # 7.7 10^3/uL (1.8-7.7); NEUTROPHILS % 64.5 % (36.0-66.0); PLATELET COUNT, AUTOMATED 404 10^3/uL (150-450); RED BLOOD COUNT 3.75 10^6/uL (4.30-6.10); RED CELL DISTRIBUTION WIDTH 14.4 % (11.5-14.5); WHITE BLOOD COUNT 11.9 10^3/uL (4.0-10.0)
[2017-11-10 04:22] LABS: ANION GAP 8 MEQ/L (8-16); BLOOD UREA NITROGEN 28 MG/DL (7-18); CALCIUM LEVEL 8.1 MG/DL (8.5-10.1); CARBON DIOXIDE LEVEL 25 MEQ/L (21-32); CHLORIDE LEVEL 110 MEQ/L (98-107); GLOMERULAR FILTRATION RATE 19.5 (>60); GLUCOSE, FASTING 69 MG/DL (70-100); POTASSIUM SERUM 4.4 MEQ/L (3.5-5.1); SODIUM LEVEL 143 MEQ/L (136-145)
[2017-11-10] MEDS: LABETALOL HCL 100 MG/20 ML VIAL IV ×2 (04:50→06:56)
[2017-11-10 05:40] LABS: BEDSIDE GLUCOSE 149 MG/DL (70-105)
[2017-11-10 06:55] LABS: BEDSIDE GLUCOSE 125 MG/DL (70-105)
[2017-11-10] MEDS: LABETALOL 100 MG TAB PO (07:19)
[2017-11-10 08:21] LABS: BEDSIDE GLUCOSE 135 MG/DL (70-105)
[2017-11-10 11:19] LABS: BEDSIDE GLUCOSE 74 MG/DL (70-105)
== END 2017-11-10 09:35 | disposition home or self-care (01) ==
LOC: M ED 03:40
DX: E10.649 Type 1 diabetes mellitus with hypoglycemia without coma (principal); I10 Essential (primary) hypertension; N18.9 Chronic kidney disease, unspecified; Z79.82 Long term (current) use of aspirin; Z79.4 Long term (current) use of insulin; Z79.899 Other long term (current) drug therapy
CPT/HCPCS: 80048

== ENCOUNTER 2017-11-23 14:29 | Emergency (ER) | payer MEDICARE, MEDICAID ==
[2017-11-23 18:02] LABS: BEDSIDE GLUCOSE 194 MG/DL (70-105)
== END 2017-11-23 21:22 | disposition home or self-care (01) ==
LOC: M ED 14:29
DX: M94.0 Chondrocostal junction syndrome [Tietze] (principal); E11.9 Type 2 diabetes mellitus without complications; I12.9 Hypertensive chronic kidney disease with stage 1 through stage 4 chronic kidney disease, or unspecified chronic kidney disease; N18.9 Chronic kidney disease, unspecified; E78.5 Hyperlipidemia, unspecified; K21.9 Gastro-esophageal reflux disease without esophagitis; N40.0 Benign prostatic hyperplasia without lower urinary tract symptoms; Z79.4 Long term (current) use of insulin; Z79.890 Hormone replacement therapy; Z79.82 Long term (current) use of aspirin
CPT/HCPCS: 71250

== ENCOUNTER 2017-12-09 17:44 | Inpatient (IN) | payer MEDICARE, MEDICAID ==
[2017-12-09 18:10] LABS: BEDSIDE GLUCOSE 337 MG/DL (70-105)
[2017-12-09 19:29] LABS: BEDSIDE GLUCOSE 350 MG/DL (70-105)
[2017-12-09] MEDS: NS 1,000 ML IV ×2 (19:30→20:56)
[2017-12-09 19:36] LABS: BASO % 0.4 % (0.0-1.0); EOS % 0.2 % (0.0-3.0); HEMATOCRIT 30.8 % (42.0-52.0); HEMOGLOBIN 10.7 g/dl (13.5-17.5); IMMATURE GRANULOCYTE % 0.4 % (0-3.0); LYMPH # 1.2 10^3/uL (1.5-4.5); MEAN CORPUSCULAR HEMOGLOBIN 29.8 pg (27.0-33.0); MEAN CORPUSCULAR HGB CONC 34.7 g/dl (32.0-36.5); MEAN CORPUSCULAR VOLUME 85.8 fl (80.0-96.0); MONO # 0.7 10^3/uL (0.0-0.8); MONO % 7.9 % (0.0-5.0); NEUTROPHILS # 7.1 10^3/uL (1.8-7.7); NEUTROPHILS % 78.1 % (36.0-66.0); PLATELET COUNT, AUTOMATED 344 10^3/uL (150-450); RED BLOOD COUNT 3.59 10^6/uL (4.30-6.10); WHITE BLOOD COUNT 9.1 10^3/uL (4.0-10.0)
[2017-12-09] MEDS: ACETAMINOPHEN TAB 650MG DOSE (2X325MG) PO (19:36)
[2017-12-09] MEDS: ONDANSETRON 4MG/2ML VIAL (J2405) IV (19:36)
[2017-12-09 19:55] LABS: AMMONIA < 10 uMOL/L (<32)
[2017-12-09 20:01] LABS: ALBUMIN 1.9 GM/DL (3.2-5.2); ALBUMIN/GLOBULIN RATIO 0.59 (1.00-1.93); ALKALINE PHOSPHATASE 137 U/L (45-117); ALT/SGPT 16 U/L (12-78); ANION GAP 18 MEQ/L (8-16); AST/SGOT 11 U/L (7-37); BILIRUBIN,DIRECT < 0.1 MG/DL (0.0-0.2); BILIRUBIN,TOTAL 0.6 MG/DL (0.2-1.0); BLOOD UREA NITROGEN 40 MG/DL (7-18); CALCIUM LEVEL 8.3 MG/DL (8.5-10.1); CARBON DIOXIDE LEVEL 15 MEQ/L (21-32); CHLORIDE LEVEL 103 MEQ/L (98-107); CPK CREATINE PHOSPHOKINASE 123 U/L (39-308); CREATININE FOR GFR 4.68 MG/DL (0.70-1.30); ETHYL ALCOHOL (ETHANOL) < 0.003 % (0.000-0.010); GLOMERULAR FILTRATION RATE 14.4 (>60); GLUCOSE, FASTING 360 MG/DL (70-100); LIPASE 427 U/L (73-393); POTASSIUM SERUM 4.7 MEQ/L (3.5-5.1); SODIUM LEVEL 136 MEQ/L (136-145); TOTAL PROTEIN 5.1 GM/DL (6.4-8.2); TROPONIN I 0.04 NG/ML (< 0.10)
[2017-12-09 20:07] LABS: CK-MB VALUE MASS 2.3 NG/ML (<3.6); MB/CK RELATIVE INDEX 1.86 (< OR =4)
[2017-12-09 20:18] LABS: OSMOLALITY SERUM 309 MOSM/KG (275-295)
[2017-12-09 20:31] LABS: MAGNESIUM LEVEL 2.2 MG/DL (1.8-2.4)
[2017-12-09 20:31] LABS: PHOSPHORUS LEVEL 5.4 MG/DL (2.5-4.9)
[2017-12-09 20:32] LABS: ACETONE/KETONE > 46.00 MG/DL (<2.81)
[2017-12-09 20:42] LABS: BEDSIDE GLUCOSE 388 MG/DL (70-105)
[2017-12-09 20:50] LABS: AMPHETAMINES LEVEL URINE NEGATIVE (NEGATIVE); BARBITURATES URINE NEGATIVE (NEGATIVE); BENZODIAZEPINES URINE NEGATIVE (NEGATIVE); CANNABINOIDS URINE NEGATIVE (NEGATIVE); COCAINE METABOLITE URINE NEGATIVE (NEGATIVE); METHADONE URINE NEGATIVE (NEGATIVE); OPIATES URINE NEGATIVE (NEGATIVE); PHENCYCLIDINE URINE NEGATIVE (NEGATIVE)
[2017-12-09 20:54] LABS: AMORPHOUS SEDIMENT RFX SMALL (NEGATIVE); KETONE, URINE AUTO RFX 1+ mg/dL (NEGATIVE); LEUKOCYTE ESTERASE UR AUTO RFX NEGATIVE (NEGATIVE); MUCUS, URINE RFX SMALL (NEGATIVE); NITRITE, URINE AUTO RFX NEGATIVE (NEGATIVE); RBC, URINE AUTO RFX 1 /HPF (0-3); SPECIFIC GRAVITY UR AUTO RFX 1.013 (1.002-1.035); SQUAM EPITHELIAL CELL UR AURFX 0 /HPF (0-6); WBC, URINE AUTO RFX 8 /HPF (0-3)
[2017-12-09 20:55] LABS: VENOUS BASE EXCESS -13.8 (-2.0-2.0); VENOUS HCO3 13.2 MEQ/L (23.0-27.0); VENOUS O2 SATURATION 97.8 % (60.0-80.0); VENOUS PARTIAL PRESSURE CO2 34.5 mmHg (38.0-50.0); VENOUS PARTIAL PRESSURE O2 111.6 mmHg (30.0-50.0); VENOUS PH 7.199 UNITS (7.330-7.430); VENOUS STANDARD HCO3 13.7 MEQ/L; VENOUS TOTAL CO2 14.2 MEQ/L (24.0-28.0)
[2017-12-09] MEDS: INSULIN HUMAN REGULAR 100 UNITS in NS 99 ML IV ×2 (20:55→23:00)
[2017-12-09] MEDS: HumuLIN R (REGULAR) INSULIN (NovoLIN R) **100U/ML** PER UNIT IV (20:56)
[2017-12-09 21:38] LABS: BEDSIDE GLUCOSE 423 MG/DL (70-105)
[2017-12-09 22:31] LABS: ESTIMATED AVERAGE GLUCOSE 286 MG/DL (60-110); HEMOGLOBIN A1c 11.6 %
[2017-12-09 22:34] LABS: BEDSIDE GLUCOSE 446 MG/DL (70-105)
[2017-12-09 22:40] LABS: VENOUS BASE EXCESS -13.4 (-2.0-2.0); VENOUS HCO3 13.7 MEQ/L (23.0-27.0); VENOUS O2 SATURATION 96.7 % (60.0-80.0); VENOUS PH 7.197 UNITS (7.330-7.430); VENOUS TOTAL CO2 14.8 MEQ/L (24.0-28.0)
[2017-12-09 23:01] LABS: BEDSIDE GLUCOSE 390 MG/DL (70-105)
[2017-12-09] MEDS: TAMSULOSIN 0.4 MG CAP PO (23:02)
[2017-12-09 23:05] LABS: ANION GAP 19 MEQ/L (8-16); BLOOD UREA NITROGEN 39 MG/DL (7-18); CALCIUM LEVEL 8.4 MG/DL (8.5-10.1); CARBON DIOXIDE LEVEL 15 MEQ/L (21-32); CHLORIDE LEVEL 103 MEQ/L (98-107); CREATININE FOR GFR 4.57 MG/DL (0.70-1.30); GLOMERULAR FILTRATION RATE 14.8 (>60); POTASSIUM SERUM 4.9 MEQ/L (3.5-5.1); SODIUM LEVEL 137 MEQ/L (136-145)
[2017-12-09 23:21] LABS: ACETONE/KETONE > 46.00 MG/DL (<2.81); GLUCOSE, FASTING 468 MG/DL (70-100)
[2017-12-09] MEDS: AMITRIPTYLINE 25 MG TAB PO (23:27)
[2017-12-10] MEDS: hydrALAZINE INJ 20 MG/ML VIAL IV
[2017-12-10 00:06] LABS: BEDSIDE GLUCOSE 339 MG/DL (70-105)
[2017-12-10] MEDS: NS 1,000 ML IV ×2 (00:09→06:22)
[2017-12-10] MEDS: INSULIN IV RATE CHANGE DOCUMENTATION ML/HR XX ×3 (00:25→02:59)
[2017-12-10 01:03] LABS: BEDSIDE GLUCOSE 251 MG/DL (70-105)
[2017-12-10 01:59] LABS: BEDSIDE GLUCOSE 222 MG/DL (70-105)
[2017-12-10 02:55] LABS: ANION GAP 12 MEQ/L (8-16); BLOOD UREA NITROGEN 36 MG/DL (7-18); CALCIUM LEVEL 8.3 MG/DL (8.5-10.1); CARBON DIOXIDE LEVEL 19 MEQ/L (21-32); CHLORIDE LEVEL 110 MEQ/L (98-107); CREATININE FOR GFR 4.22 MG/DL (0.70-1.30); GLOMERULAR FILTRATION RATE 16.3 (>60); GLUCOSE, FASTING 212 MG/DL (70-100); POTASSIUM SERUM 3.9 MEQ/L (3.5-5.1); SODIUM LEVEL 141 MEQ/L (136-145)
[2017-12-10 03:01] LABS: BEDSIDE GLUCOSE 193 MG/DL (70-105)
[2017-12-10 04:01] LABS: BEDSIDE GLUCOSE 196 MG/DL (70-105)
[2017-12-10] MEDS: LEVOTHYROXINE 50MCG TABLET (0.05MG) PO (05:10)
[2017-12-10 05:11] LABS: BEDSIDE GLUCOSE 177 MG/DL (70-105)
[2017-12-10] MEDS: ACETAMINOPHEN TAB 650MG DOSE (2X325MG) PO (05:32)
[2017-12-10 06:00] LABS: BEDSIDE GLUCOSE 172 MG/DL (70-105)
[2017-12-10 06:50] LABS: BEDSIDE GLUCOSE 154 MG/DL (70-105)
[2017-12-10 07:45] LABS: BEDSIDE GLUCOSE 156 MG/DL (70-105)
[2017-12-10] MEDS: LEVEMIR (INSULIN DETEMIR) 1 UNITS/0.01ML SC (07:51)
[2017-12-10 08:46] LABS: ANION GAP 10 MEQ/L (8-16); BLOOD UREA NITROGEN 32 MG/DL (7-18); CALCIUM LEVEL 7.6 MG/DL (8.5-10.1); CARBON DIOXIDE LEVEL 20 MEQ/L (21-32); CHLORIDE LEVEL 113 MEQ/L (98-107); CREATININE FOR GFR 4.13 MG/DL (0.70-1.30); GLOMERULAR FILTRATION RATE 16.7 (>60); GLUCOSE, FASTING 155 MG/DL (70-100); POTASSIUM SERUM 3.8 MEQ/L (3.5-5.1); SODIUM LEVEL 143 MEQ/L (136-145)
[2017-12-10] MEDS: PATIROMER SORBITEX CALCIUM 8.4 GM POWDER PACKET (VELTASSA) PO ×2 (09:00→12:30)
[2017-12-10] MEDS ORDERED: GLUCAGON FOR INJ 1 MG VIAL (J1610) SC (09:15)
[2017-12-10] MEDS ORDERED: GLUCOSE 4 GM CHEW TABLET PO (09:15)
[2017-12-10] MEDS ORDERED: DEXTROSE 50% 50 ML SYRINGE IV (09:15)
[2017-12-10] MEDS: ENOXAPARIN 30 MG/0.3 ML SYR (J1650) SC (09:21)
[2017-12-10] MEDS: amLODIPine 10 MG TAB PO (09:22)
[2017-12-10] MEDS: TAMSULOSIN 0.4 MG CAP PO (09:22)
[2017-12-10] MEDS: ASPIRIN 81 MG ENTERIC TAB PO (09:22)
[2017-12-10] MEDS: ATORVASTATIN 20 MG TAB PO (09:23)
[2017-12-10 11:53] LABS: BEDSIDE GLUCOSE 210 MG/DL (70-105)
[2017-12-10] MEDS: HumaLOG INSULIN (NovoLOG) PER UNIT SC (12:38)
[2017-12-10 12:40] LABS: ANION GAP 9 MEQ/L (8-16); BLOOD UREA NITROGEN 30 MG/DL (7-18); CALCIUM LEVEL 8.2 MG/DL (8.5-10.1); CARBON DIOXIDE LEVEL 20 MEQ/L (21-32); CHLORIDE LEVEL 110 MEQ/L (98-107); CREATININE FOR GFR 4.14 MG/DL (0.70-1.30); GLOMERULAR FILTRATION RATE 16.6 (>60); GLUCOSE, FASTING 201 MG/DL (70-100); SODIUM LEVEL 139 MEQ/L (136-145)
[2017-12-10] MEDS ORDERED: HumaLOG INSULIN (NovoLOG) PER UNIT SC (21:00)
== END 2017-12-10 15:39 | disposition home or self-care (01) | DRG 638 ==
LOC: M ED 17:44 → M ED INP 21:59 → M ICU 22:48
PROVIDERS: Internal Medicine
DX: E10.10 Type 1 diabetes mellitus with ketoacidosis without coma (principal); E87.2 Acidosis; N17.9 Acute kidney failure, unspecified; N18.3 Chronic kidney disease, stage 3 (moderate); I12.9 Hypertensive chronic kidney disease with stage 1 through stage 4 chronic kidney disease, or unspecified chronic kidney disease; Z79.4 Long term (current) use of insulin; N40.0 Benign prostatic hyperplasia without lower urinary tract symptoms; E78.5 Hyperlipidemia, unspecified; E03.9 Hypothyroidism, unspecified; Z79.899 Other long term (current) drug therapy; Z79.82 Long term (current) use of aspirin; Z91.19 Patient's noncompliance with other medical treatment and regimen

== ENCOUNTER → 2018-01-04 | Outpatient (REF) | payer MEDICARE, MEDICAID ==
[2018-01-04 13:31] LABS: FERRITIN 87 NG/ML (26-388); IRON (FE) 70 UG/DL (65-175); PERCENT SATURATION 27.3 % (19.7-50.0); TOTAL IRON BINDING CAPACITY 256 UG/DL (250-450)
== END ==
LOC: M LAB REF 12:55
DX: N18.4 Chronic kidney disease, stage 4 (severe) (principal); D63.1 Anemia in chronic kidney disease
CPT/HCPCS: 83550

== ENCOUNTER 2018-02-03 13:01 | Inpatient (IN) | payer MEDICARE, MEDICAID ==
[2018-02-03] MEDS: NS 1,000 ML IV ×7 (13:43→21:59)
[2018-02-03] MEDS: ONDANSETRON 4MG/2ML VIAL (J2405) IV (13:43)
[2018-02-03 13:52] LABS: VENOUS BASE EXCESS -21.9 (-2.0-2.0); VENOUS O2 SATURATION 99.3 % (60.0-80.0); VENOUS PARTIAL PRESSURE CO2 19.7 mmHg (38.0-50.0); VENOUS PARTIAL PRESSURE O2 215.7 mmHg (30.0-50.0); VENOUS PH 7.098 UNITS (7.330-7.430); VENOUS STANDARD HCO3 8.6 MEQ/L; VENOUS TOTAL CO2 6.6 MEQ/L (24.0-28.0)
[2018-02-03 13:55] LABS: BASO % 0.2 % (0.0-1.0); HEMATOCRIT 31.9 % (42.0-52.0); HEMOGLOBIN 10.2 g/dl (13.5-17.5); IMMATURE GRANULOCYTE % 1.3 % (0-3.0); LYMPH # 0.4 10^3/uL (1.5-4.5); LYMPH % 2.5 % (24.0-44.0); MEAN CORPUSCULAR HEMOGLOBIN 30.4 pg (27.0-33.0); MEAN CORPUSCULAR VOLUME 95.2 fl (80.0-96.0); MONO # 0.5 10^3/uL (0.0-0.8); MONO % 3.2 % (0.0-5.0); NEUTROPHILS # 15.5 10^3/uL (1.8-7.7); NEUTROPHILS % 92.8 % (36.0-66.0); PLATELET COUNT, AUTOMATED 334 10^3/uL (150-450); RED BLOOD COUNT 3.35 10^6/uL (4.30-6.10); RED CELL DISTRIBUTION WIDTH 13.6 % (11.5-14.5); WHITE BLOOD COUNT 16.7 10^3/uL (4.0-10.0)
[2018-02-03 14:21] LABS: ALBUMIN 1.8 GM/DL (3.2-5.2); ALKALINE PHOSPHATASE 137 U/L (45-117); ALT/SGPT 21 U/L (12-78); ANION GAP 26 MEQ/L (8-16); AST/SGOT 25 U/L (7-37); BILIRUBIN,DIRECT < 0.1 MG/DL (0.0-0.2); BILIRUBIN,TOTAL 0.7 MG/DL (0.2-1.0); BLOOD UREA NITROGEN 47 MG/DL (7-18); CALCIUM LEVEL 7.5 MG/DL (8.5-10.1); CARBON DIOXIDE LEVEL 6 MEQ/L (21-32); CHLORIDE LEVEL 91 MEQ/L (98-107); CREATININE FOR GFR 5.43 MG/DL (0.70-1.30); GLOMERULAR FILTRATION RATE 12.1 (>60); LIPASE 147 U/L (73-393); SODIUM LEVEL 123 MEQ/L (136-145); TOTAL PROTEIN 5.4 GM/DL (6.4-8.2)
[2018-02-03 14:45] LABS: GLUCOSE, FASTING 1076 MG/DL (70-100); POTASSIUM SERUM 6.7 MEQ/L (3.5-5.1)
[2018-02-03] MEDS: D5W/0.45% SODIUM CHLORIDE 1,000 ML IV (14:58)
[2018-02-03] MEDS ORDERED: HumuLIN R (REGULAR) INSULIN (NovoLIN R) **100U/ML** PER UNIT IV (15:15)
[2018-02-03] MEDS: HumuLIN R (REGULAR) INSULIN (NovoLIN R) **100U/ML** PER UNIT IV (15:26)
[2018-02-03 15:39] LABS: MAGNESIUM LEVEL 2.3 MG/DL (1.8-2.4); PHOSPHORUS LEVEL 7.7 MG/DL (2.5-4.9)
[2018-02-03] MEDS: HEPARIN SOD (PORCINE) 5000 UNITS/ML VIAL SC ×2 (15:41→20:48)
[2018-02-03] MEDS: PANTOPRAZOLE 40MG INJ (PROTONIX) (C9113) IV (15:41)
[2018-02-03] MEDS: INSULIN HUMAN REGULAR 100 UNITS in NS 99 ML IV (15:43)
[2018-02-03 15:51] LABS: ACETONE/KETONE > 46.00 MG/DL (<2.81)
[2018-02-03 18:43] LABS: ANION GAP 23 MEQ/L (8-16); BLOOD UREA NITROGEN 48 MG/DL (7-18); CALCIUM LEVEL 7.3 MG/DL (8.5-10.1); CARBON DIOXIDE LEVEL 7 MEQ/L (21-32); CHLORIDE LEVEL 100 MEQ/L (98-107); CREATININE FOR GFR 5.57 MG/DL (0.70-1.30); GLOMERULAR FILTRATION RATE 11.8 (>60); SODIUM LEVEL 130 MEQ/L (136-145)
[2018-02-03 19:14] LABS: GLUCOSE, FASTING 791 MG/DL (70-100); POTASSIUM SERUM 5.2 MEQ/L (3.5-5.1)
[2018-02-03 20:05] LABS: BEDSIDE GLUCOSE 548 MG/DL (70-105)
[2018-02-03] MEDS: INSULIN IV RATE CHANGE DOCUMENTATION ML/HR XX ×3 (20:30→23:07)
[2018-02-03] MEDS: ATORVASTATIN 20 MG TAB PO (20:48)
[2018-02-03] MEDS: AMITRIPTYLINE 25 MG TAB PO (20:48)
[2018-02-03] MEDS: ACETAMINOPHEN TAB 650MG DOSE (2X325MG) PO (20:50)
[2018-02-03 20:58] LABS: BEDSIDE GLUCOSE 436 MG/DL (70-105)
[2018-02-03 22:03] LABS: BEDSIDE GLUCOSE 330 MG/DL (70-105)
[2018-02-03 22:27] LABS: ANION GAP 18 MEQ/L (8-16); BLOOD UREA NITROGEN 46 MG/DL (7-18); CALCIUM LEVEL 7.4 MG/DL (8.5-10.1); CARBON DIOXIDE LEVEL 14 MEQ/L (21-32); CHLORIDE LEVEL 108 MEQ/L (98-107); GLOMERULAR FILTRATION RATE 11.9 (>60); GLUCOSE, FASTING 343 MG/DL (70-100); POTASSIUM SERUM 4.2 MEQ/L (3.5-5.1); SODIUM LEVEL 140 MEQ/L (136-145)
[2018-02-03 23:05] LABS: BEDSIDE GLUCOSE 244 MG/DL (70-105)
[2018-02-04 00:03] LABS: BEDSIDE GLUCOSE 194 MG/DL (70-105)
[2018-02-04] MEDS: D5W/0.45% SODIUM CHLORIDE 1,000 ML IV ×2 (00:05→10:32)
[2018-02-04] MEDS: INSULIN IV RATE CHANGE DOCUMENTATION ML/HR XX ×7 (00:10→13:18)
[2018-02-04 01:10] LABS: BEDSIDE GLUCOSE 195 MG/DL (70-105)
[2018-02-04 02:07] LABS: BEDSIDE GLUCOSE 202 MG/DL (70-105)
[2018-02-04 02:26] LABS: ANION GAP 10 MEQ/L (8-16); BLOOD UREA NITROGEN 43 MG/DL (7-18); CALCIUM LEVEL 7.6 MG/DL (8.5-10.1); CARBON DIOXIDE LEVEL 18 MEQ/L (21-32); CHLORIDE LEVEL 113 MEQ/L (98-107); CREATININE FOR GFR 5.35 MG/DL (0.70-1.30); GLOMERULAR FILTRATION RATE 12.3 (>60); GLUCOSE, FASTING 201 MG/DL (70-100); SODIUM LEVEL 141 MEQ/L (136-145)
[2018-02-04 03:22] LABS: BEDSIDE GLUCOSE 170 MG/DL (70-105)
[2018-02-04] MEDS: ACETAMINOPHEN TAB 650MG DOSE (2X325MG) PO (04:05)
[2018-02-04 04:11] LABS: BEDSIDE GLUCOSE 170 MG/DL (70-105)
[2018-02-04 05:07] LABS: BEDSIDE GLUCOSE 190 MG/DL (70-105)
[2018-02-04 06:03] LABS: BEDSIDE GLUCOSE 190 MG/DL (70-105)
[2018-02-04] MEDS: HEPARIN SOD (PORCINE) 5000 UNITS/ML VIAL SC ×3 (06:25→21:16)
[2018-02-04] MEDS: LEVOTHYROXINE 112MCG TABLET (0.112MG) PO (06:25)
[2018-02-04 06:45] LABS: ANION GAP 14 MEQ/L (8-16); BLOOD UREA NITROGEN 40 MG/DL (7-18); CALCIUM LEVEL 7.7 MG/DL (8.5-10.1); CARBON DIOXIDE LEVEL 17 MEQ/L (21-32); CHLORIDE LEVEL 113 MEQ/L (98-107); CREATININE FOR GFR 5.25 MG/DL (0.70-1.30); GLOMERULAR FILTRATION RATE 12.6 (>60); GLUCOSE, FASTING 190 MG/DL (70-100); POTASSIUM SERUM 3.9 MEQ/L (3.5-5.1); SODIUM LEVEL 144 MEQ/L (136-145)
[2018-02-04 07:02] LABS: BEDSIDE GLUCOSE 222 MG/DL (70-105)
[2018-02-04 07:59] LABS: BEDSIDE GLUCOSE 203 MG/DL (70-105)
[2018-02-04 08:03] LABS: BASO % 0.1 % (0.0-1.0); EOS # 0.1 10^3/uL (0.0-0.50); EOS % 0.4 % (0.0-3.0); HEMATOCRIT 27.3 % (42.0-52.0); HEMOGLOBIN 9.3 g/dl (13.5-17.5); IMMATURE GRANULOCYTE % 0.6 % (0-3.0); LYMPH # 1.4 10^3/uL (1.5-4.5); LYMPH % 8.9 % (24.0-44.0); MEAN CORPUSCULAR HEMOGLOBIN 30.1 pg (27.0-33.0); MEAN CORPUSCULAR HGB CONC 34.1 g/dl (32.0-36.5); MEAN CORPUSCULAR VOLUME 88.3 fl (80.0-96.0); NEUTROPHILS # 13.7 10^3/uL (1.8-7.7); PLATELET COUNT, AUTOMATED 356 10^3/uL (150-450); RED BLOOD COUNT 3.09 10^6/uL (4.30-6.10); RED CELL DISTRIBUTION WIDTH 13.3 % (11.5-14.5); WHITE BLOOD COUNT 16.3 10^3/uL (4.0-10.0)
[2018-02-04] MEDS: TAMSULOSIN 0.4 MG CAP PO (08:11)
[2018-02-04] MEDS: PANTOPRAZOLE 40MG INJ (PROTONIX) (C9113) IV (08:11)
[2018-02-04] MEDS: ASPIRIN 81 MG ENTERIC TAB PO (08:11)
[2018-02-04] MEDS: ATENOLOL 25 MG TAB PO (08:11)
[2018-02-04] MEDS: amLODIPine 10 MG TAB PO (08:11)
[2018-02-04 09:07] LABS: BEDSIDE GLUCOSE 206 MG/DL (70-105)
[2018-02-04 09:42] LABS: MAGNESIUM LEVEL 1.7 MG/DL (1.8-2.4)
[2018-02-04 09:42] LABS: ACETONE/KETONE 9.76 MG/DL (<2.81)
[2018-02-04 10:00] LABS: ERYTHROCYTE SEDIMENTATION RATE 62 mm/hr (0-15)
[2018-02-04 10:14] LABS: BEDSIDE GLUCOSE 173 MG/DL (70-105)
[2018-02-04 10:22] LABS: ANION GAP 13 MEQ/L (8-16); BLOOD UREA NITROGEN 36 MG/DL (7-18); CALCIUM LEVEL 7.4 MG/DL (8.5-10.1); CARBON DIOXIDE LEVEL 17 MEQ/L (21-32); CHLORIDE LEVEL 109 MEQ/L (98-107); CREATININE FOR GFR 5.21 MG/DL (0.70-1.30); GLOMERULAR FILTRATION RATE 12.7 (>60); GLUCOSE, FASTING 395 MG/DL (70-100); POTASSIUM SERUM 3.5 MEQ/L (3.5-5.1); SODIUM LEVEL 139 MEQ/L (136-145)
[2018-02-04] MEDS: MAGNESIUM OXIDE 400 MG TAB (MAG-OX) PO ×2 (11:08→21:15)
[2018-02-04 11:09] LABS: BEDSIDE GLUCOSE 196 MG/DL (70-105)
[2018-02-04 12:27] LABS: BEDSIDE GLUCOSE 209 MG/DL (70-105)
[2018-02-04] MEDS: KCL 10MEQ/100ML SWI (KRUN) 10 MEQ in APPROPRIATE DILUENT 1 EA IV ×3 (12:28→14:15)
[2018-02-04] MEDS: ATENOLOL 50 MG TAB PO (12:28)
[2018-02-04] MEDS: INSULIN HUMAN REGULAR 100 UNITS in NS 99 ML IV (13:08)
[2018-02-04 13:12] LABS: BEDSIDE GLUCOSE 196 MG/DL (70-105)
[2018-02-04 14:03] LABS: VENOUS BASE EXCESS -10.7 (-2.0-2.0); VENOUS HCO3 15.2 MEQ/L (23.0-27.0); VENOUS O2 SATURATION 99.1 % (60.0-80.0); VENOUS PARTIAL PRESSURE CO2 33.6 mmHg (38.0-50.0); VENOUS PARTIAL PRESSURE O2 190.3 mmHg (30.0-50.0); VENOUS PH 7.272 UNITS (7.330-7.430); VENOUS SITE NOT GIVEN; VENOUS TOTAL CO2 16.2 MEQ/L (24.0-28.0)
[2018-02-04 14:06] LABS: BEDSIDE GLUCOSE 173 MG/DL (70-105)
[2018-02-04 14:28] LABS: ACETONE/KETONE 1.03 MG/DL (<2.81); ANION GAP 9 MEQ/L (8-16); BLOOD UREA NITROGEN 38 MG/DL (7-18); CALCIUM LEVEL 8.1 MG/DL (8.5-10.1); CARBON DIOXIDE LEVEL 17 MEQ/L (21-32); CHLORIDE LEVEL 112 MEQ/L (98-107); FREE T4 0.65 NG/DL (0.76-1.46); GLOMERULAR FILTRATION RATE 12.4 (>60); GLUCOSE, FASTING 183 MG/DL (70-100); PHOSPHORUS LEVEL 3.4 MG/DL (2.5-4.9); POTASSIUM SERUM 3.9 MEQ/L (3.5-5.1); SODIUM LEVEL 138 MEQ/L (136-145)
[2018-02-04 14:28] LABS: LACTIC ACID SEPSIS PROTOCOL 2.1 MMOL/L (0.4-2.0)
[2018-02-04] MEDS: NS 0.45% 1,000 ML IV (14:45)
[2018-02-04] MEDS: LEVEMIR (INSULIN DETEMIR) 1 UNITS/0.01ML SC (15:07)
[2018-02-04] MEDS ORDERED: GLUCAGON FOR INJ 1 MG VIAL (J1610) SC (15:15)
[2018-02-04 16:53] LABS: BEDSIDE GLUCOSE 198 MG/DL (70-105)
[2018-02-04] MEDS: KCL 20MEQ IN 0.45NS 1000ML 1,000 ML IV (17:16)
[2018-02-04] MEDS: HumaLOG INSULIN (NovoLOG) PER UNIT SC ×2 (17:25→21:10)
[2018-02-04 18:26] LABS: ANION GAP 11 MEQ/L (8-16); BLOOD UREA NITROGEN 37 MG/DL (7-18); CARBON DIOXIDE LEVEL 15 MEQ/L (21-32); CHLORIDE LEVEL 112 MEQ/L (98-107); CREATININE FOR GFR 5.37 MG/DL (0.70-1.30); GLOMERULAR FILTRATION RATE 12.3 (>60); GLUCOSE, FASTING 159 MG/DL (70-100); POTASSIUM SERUM 3.9 MEQ/L (3.5-5.1); SODIUM LEVEL 138 MEQ/L (136-145)
[2018-02-04 21:12] LABS: BEDSIDE GLUCOSE 55 MG/DL (70-105)
[2018-02-04] MEDS: ATORVASTATIN 20 MG TAB PO (21:15)
[2018-02-04] MEDS: AMITRIPTYLINE 25 MG TAB PO (21:16)
[2018-02-04 21:52] LABS: BEDSIDE GLUCOSE 48 MG/DL (70-105)
[2018-02-04 22:27] LABS: BEDSIDE GLUCOSE 66 MG/DL (70-105)
[2018-02-04 22:28] LABS: ANION GAP 10 MEQ/L (8-16); BLOOD UREA NITROGEN 33 MG/DL (7-18); CALCIUM LEVEL 8.2 MG/DL (8.5-10.1); CARBON DIOXIDE LEVEL 17 MEQ/L (21-32); CHLORIDE LEVEL 113 MEQ/L (98-107); CREATININE FOR GFR 5.14 MG/DL (0.70-1.30); GLOMERULAR FILTRATION RATE 12.9 (>60); GLUCOSE, FASTING 61 MG/DL (70-100); POTASSIUM SERUM 3.7 MEQ/L (3.5-5.1); SODIUM LEVEL 140 MEQ/L (136-145)
[2018-02-04] MEDS: GLUCOSE 4 GM CHEW TABLET PO (23:29)
[2018-02-05 00:13] LABS: BEDSIDE GLUCOSE 64 MG/DL (70-105)
[2018-02-05] MEDS: KCL 20MEQ IN 0.45NS 1000ML 1,000 ML IV (01:25)
[2018-02-05 02:35] LABS: BEDSIDE GLUCOSE 72 MG/DL (70-105)
[2018-02-05 05:04] LABS: HEMATOCRIT 27.7 % (42.0-52.0); HEMOGLOBIN 9.5 g/dl (13.5-17.5); MEAN CORPUSCULAR HEMOGLOBIN 30.4 pg (27.0-33.0); MEAN CORPUSCULAR HGB CONC 34.3 g/dl (32.0-36.5); MEAN CORPUSCULAR VOLUME 88.5 fl (80.0-96.0); PLATELET COUNT, AUTOMATED 323 10^3/uL (150-450); RED BLOOD COUNT 3.13 10^6/uL (4.30-6.10); RED CELL DISTRIBUTION WIDTH 14.2 % (11.5-14.5); WHITE BLOOD COUNT 11.8 10^3/uL (4.0-10.0)
[2018-02-05 05:26] LABS: ANION GAP 9 MEQ/L (8-16); BLOOD UREA NITROGEN 31 MG/DL (7-18); CALCIUM LEVEL 7.7 MG/DL (8.5-10.1); CARBON DIOXIDE LEVEL 18 MEQ/L (21-32); CHLORIDE LEVEL 113 MEQ/L (98-107); CREATININE FOR GFR 4.95 MG/DL (0.70-1.30); GLOMERULAR FILTRATION RATE 13.5 (>60); GLUCOSE, FASTING 100 MG/DL (70-100); MAGNESIUM LEVEL 2.1 MG/DL (1.8-2.4); POTASSIUM SERUM 3.9 MEQ/L (3.5-5.1); SODIUM LEVEL 140 MEQ/L (136-145)
[2018-02-05] MEDS: HEPARIN SOD (PORCINE) 5000 UNITS/ML VIAL SC ×3 (06:02→20:20)
[2018-02-05] MEDS: LEVOTHYROXINE 112MCG TABLET (0.112MG) PO (06:02)
[2018-02-05 06:03] LABS: BEDSIDE GLUCOSE 103 MG/DL (70-105)
[2018-02-05] MEDS: HumaLOG INSULIN (NovoLOG) PER UNIT SC ×4 (07:30→20:22)
[2018-02-05] MEDS: ONDANSETRON 4MG/2ML VIAL (J2405) IV ×2 (08:58→19:31)
[2018-02-05] MEDS: PANTOPRAZOLE 40MG INJ (PROTONIX) (C9113) IV (08:58)
[2018-02-05] MEDS: ASPIRIN 81 MG ENTERIC TAB PO (08:58)
[2018-02-05] MEDS: TAMSULOSIN 0.4 MG CAP PO (08:59)
[2018-02-05] MEDS: MAGNESIUM OXIDE 400 MG TAB (MAG-OX) PO ×2 (08:59→20:21)
[2018-02-05] MEDS: amLODIPine 10 MG TAB PO (08:59)
[2018-02-05] MEDS: ATENOLOL 25 MG TAB PO (08:59)
[2018-02-05 11:55] LABS: BEDSIDE GLUCOSE 345 MG/DL (70-105)
[2018-02-05 12:33] LABS: IRON (FE) 69 UG/DL (65-175); PERCENT SATURATION 42.6 % (19.7-50.0); TOTAL IRON BINDING CAPACITY 162 UG/DL (250-450)
[2018-02-05] MEDS: METOCLOPRAMIDE INJ 10MG/2ML VIAL (J2765) IV ×2 (13:25→18:15)
[2018-02-05 18:03] LABS: BEDSIDE GLUCOSE 303 MG/DL (70-105)
[2018-02-05 20:01] LABS: BEDSIDE GLUCOSE 150 MG/DL (70-105)
[2018-02-05] MEDS: ATORVASTATIN 20 MG TAB PO (20:21)
[2018-02-05] MEDS: ATENOLOL 50 MG TAB PO (20:21)
[2018-02-05] MEDS: AMITRIPTYLINE 25 MG TAB PO (20:22)
[2018-02-05 20:40] LABS: ESTIMATED AVERAGE GLUCOSE 289 MG/DL (60-110); HEMOGLOBIN A1c 11.7 %
[2018-02-06] MEDS: LEVOTHYROXINE 137MCG TABLET (0.137MG) PO (06:06)
[2018-02-06] MEDS: HEPARIN SOD (PORCINE) 5000 UNITS/ML VIAL SC ×3 (06:06→20:59)
[2018-02-06 07:45] LABS: BEDSIDE GLUCOSE 472 MG/DL (70-105)
[2018-02-06] MEDS: ASPIRIN 81 MG ENTERIC TAB PO (08:11)
[2018-02-06] MEDS: PANTOPRAZOLE 40MG INJ (PROTONIX) (C9113) IV (08:11)
[2018-02-06] MEDS: HumaLOG INSULIN (NovoLOG) PER UNIT SC ×4 (08:11→21:00)
[2018-02-06] MEDS: TAMSULOSIN 0.4 MG CAP PO (08:12)
[2018-02-06] MEDS: amLODIPine 10 MG TAB PO (08:12)
[2018-02-06] MEDS: ATENOLOL 50 MG TAB PO ×2 (08:12→20:58)
[2018-02-06] MEDS: MAGNESIUM OXIDE 400 MG TAB (MAG-OX) PO ×2 (08:13→21:00)
[2018-02-06 10:35] LABS: HEMATOCRIT 31.1 % (42.0-52.0); HEMOGLOBIN 10.2 g/dl (13.5-17.5); MEAN CORPUSCULAR HEMOGLOBIN 29.7 pg (27.0-33.0); MEAN CORPUSCULAR HGB CONC 32.8 g/dl (32.0-36.5); MEAN CORPUSCULAR VOLUME 90.4 fl (80.0-96.0); PLATELET COUNT, AUTOMATED 365 10^3/uL (150-450); RED BLOOD COUNT 3.44 10^6/uL (4.30-6.10); RED CELL DISTRIBUTION WIDTH 14.1 % (11.5-14.5); WHITE BLOOD COUNT 10.1 10^3/uL (4.0-10.0)
[2018-02-06 10:40] LABS: ALBUMIN 1.8 GM/DL (3.2-5.2); ANION GAP 15 MEQ/L (8-16); BLOOD UREA NITROGEN 36 MG/DL (7-18); CALCIUM LEVEL 7.8 MG/DL (8.5-10.1); CARBON DIOXIDE LEVEL 16 MEQ/L (21-32); CHLORIDE LEVEL 106 MEQ/L (98-107); CREATININE FOR GFR 5.26 MG/DL (0.70-1.30); GLOMERULAR FILTRATION RATE 12.6 (>60); GLUCOSE, FASTING 382 MG/DL (70-100); MAGNESIUM LEVEL 2.5 MG/DL (1.8-2.4); PHOSPHORUS LEVEL 2.7 MG/DL (2.5-4.9); POTASSIUM SERUM 4.1 MEQ/L (3.5-5.1); SODIUM LEVEL 137 MEQ/L (136-145)
[2018-02-06] MEDS: LEVEMIR (INSULIN DETEMIR) 1 UNITS/0.01ML SC ×2 (10:40→21:00)
[2018-02-06 11:22] LABS: BEDSIDE GLUCOSE 288 MG/DL (70-105)
[2018-02-06 11:39] LABS: BEDSIDE GLUCOSE > 600 MG/DL (70-105)
[2018-02-06 11:39] LABS: BEDSIDE GLUCOSE > 600 MG/DL (70-105)
[2018-02-06 11:39] LABS: BEDSIDE GLUCOSE > 600 MG/DL (70-105)
[2018-02-06 11:39] LABS: BEDSIDE GLUCOSE > 600 MG/DL (70-105)
[2018-02-06] MEDS: ONDANSETRON 4MG/2ML VIAL (J2405) IV (13:23)
[2018-02-06 17:18] LABS: BEDSIDE GLUCOSE 98 MG/DL (70-105)
[2018-02-06 20:53] LABS: BEDSIDE GLUCOSE 179 MG/DL (70-105)
[2018-02-06] MEDS: ATORVASTATIN 20 MG TAB PO (20:58)
[2018-02-06] MEDS: AMITRIPTYLINE 25 MG TAB PO (21:00)
[2018-02-07] MEDS: HEPARIN SOD (PORCINE) 5000 UNITS/ML VIAL SC ×3 (05:41→21:53)
[2018-02-07] MEDS: LEVOTHYROXINE 137MCG TABLET (0.137MG) PO (05:41)
[2018-02-07] MEDS: DEXTROSE 50% 50 ML SYRINGE IV ×2 (05:56→06:24)
[2018-02-07 06:03] LABS: BEDSIDE GLUCOSE 16 MG/DL (70-105)
[2018-02-07 06:06] LABS: BEDSIDE GLUCOSE 80 MG/DL (70-105)
[2018-02-07 06:20] LABS: HEMATOCRIT 31.3 % (42.0-52.0); HEMOGLOBIN 10.5 g/dl (13.5-17.5); MEAN CORPUSCULAR HEMOGLOBIN 29.7 pg (27.0-33.0); MEAN CORPUSCULAR HGB CONC 33.5 g/dl (32.0-36.5); MEAN CORPUSCULAR VOLUME 88.4 fl (80.0-96.0); PLATELET COUNT, AUTOMATED 381 10^3/uL (150-450); RED BLOOD COUNT 3.54 10^6/uL (4.30-6.10); RED CELL DISTRIBUTION WIDTH 13.8 % (11.5-14.5); WHITE BLOOD COUNT 10.9 10^3/uL (4.0-10.0)
[2018-02-07 06:25] LABS: BEDSIDE GLUCOSE 76 MG/DL (70-105)
[2018-02-07 06:27] LABS: BEDSIDE GLUCOSE 108 MG/DL (70-105)
[2018-02-07 06:40] LABS: ANION GAP 11 MEQ/L (8-16); BLOOD UREA NITROGEN 33 MG/DL (7-18); CALCIUM LEVEL 8.5 MG/DL (8.5-10.1); CARBON DIOXIDE LEVEL 21 MEQ/L (21-32); CHLORIDE LEVEL 110 MEQ/L (98-107); CREATININE FOR GFR 5.03 MG/DL (0.70-1.30); GLOMERULAR FILTRATION RATE 13.2 (>60); MAGNESIUM LEVEL 2.7 MG/DL (1.8-2.4); POTASSIUM SERUM 3.2 MEQ/L (3.5-5.1); SODIUM LEVEL 142 MEQ/L (136-145)
[2018-02-07 06:41] LABS: BEDSIDE GLUCOSE CONFIRMATION 24 MG/DL (LESS THAN 200)
[2018-02-07 06:41] LABS: GLUCOSE, FASTING 25 MG/DL (70-100)
[2018-02-07] MEDS: HumaLOG INSULIN (NovoLOG) PER UNIT SC ×4 (07:30→21:53)
[2018-02-07 07:36] LABS: BEDSIDE GLUCOSE 126 MG/DL (70-105)
[2018-02-07] MEDS: METOCLOPRAMIDE INJ 10MG/2ML VIAL (J2765) IV (07:39)
[2018-02-07] MEDS: PANTOPRAZOLE 40MG INJ (PROTONIX) (C9113) IV (08:02)
[2018-02-07] MEDS: ASPIRIN 81 MG ENTERIC TAB PO (08:02)
[2018-02-07] MEDS: LEVEMIR (INSULIN DETEMIR) 1 UNITS/0.01ML SC (08:02)
[2018-02-07] MEDS: ATENOLOL 50 MG TAB PO ×2 (08:02→21:52)
[2018-02-07] MEDS: TAMSULOSIN 0.4 MG CAP PO (08:02)
[2018-02-07] MEDS: amLODIPine 10 MG TAB PO (08:02)
[2018-02-07] MEDS: MAGNESIUM OXIDE 400 MG TAB (MAG-OX) PO ×2 (09:00→22:46)
[2018-02-07 10:18] LABS: BEDSIDE GLUCOSE 332 MG/DL (70-105)
[2018-02-07 10:27] LABS: BEDSIDE GLUCOSE 333 MG/DL (70-105)
[2018-02-07 11:31] LABS: BEDSIDE GLUCOSE 133 MG/DL (70-105)
[2018-02-07 13:12] LABS: BEDSIDE GLUCOSE 263 MG/DL (70-105)
[2018-02-07] MEDS: POTASSIUM CHLORIDE 10 MEQ SR TABLET PO (13:16)
[2018-02-07 16:43] LABS: BEDSIDE GLUCOSE 83 MG/DL (70-105)
[2018-02-07 18:34] LABS: BEDSIDE GLUCOSE 106 MG/DL (70-105)
[2018-02-07 20:58] LABS: BEDSIDE GLUCOSE 214 MG/DL (70-105)
[2018-02-07] MEDS: ATORVASTATIN 20 MG TAB PO (21:52)
[2018-02-07] MEDS: AMITRIPTYLINE 25 MG TAB PO (21:53)
[2018-02-07 22:10] LABS: BEDSIDE GLUCOSE 266 MG/DL (70-105)
[2018-02-07 23:16] LABS: BEDSIDE GLUCOSE 322 MG/DL (70-105)
[2018-02-08 01:49] LABS: BEDSIDE GLUCOSE 340 MG/DL (70-105)
[2018-02-08] MEDS: LEVOTHYROXINE 137MCG TABLET (0.137MG) PO (05:41)
[2018-02-08] MEDS: HEPARIN SOD (PORCINE) 5000 UNITS/ML VIAL SC ×3 (05:41→21:50)
[2018-02-08 06:19] LABS: BEDSIDE GLUCOSE 542 MG/DL (70-105)
[2018-02-08 06:22] LABS: BEDSIDE GLUCOSE 491 MG/DL (70-105)
[2018-02-08] MEDS: HumaLOG INSULIN (NovoLOG) PER UNIT SC ×4 (06:59→21:51)
[2018-02-08 07:23] LABS: HEMATOCRIT 28.3 % (42.0-52.0); HEMOGLOBIN 9.3 g/dl (13.5-17.5); MEAN CORPUSCULAR HEMOGLOBIN 29.9 pg (27.0-33.0); MEAN CORPUSCULAR HGB CONC 32.9 g/dl (32.0-36.5); PLATELET COUNT, AUTOMATED 327 10^3/uL (150-450); RED BLOOD COUNT 3.11 10^6/uL (4.30-6.10); RED CELL DISTRIBUTION WIDTH 14.2 % (11.5-14.5); WHITE BLOOD COUNT 8.9 10^3/uL (4.0-10.0)
[2018-02-08 07:33] LABS: ANION GAP 7 MEQ/L (8-16); BLOOD UREA NITROGEN 35 MG/DL (7-18); CALCIUM LEVEL 7.8 MG/DL (8.5-10.1); CARBON DIOXIDE LEVEL 21 MEQ/L (21-32); CHLORIDE LEVEL 103 MEQ/L (98-107); CREATININE FOR GFR 5.24 MG/DL (0.70-1.30); GLOMERULAR FILTRATION RATE 12.6 (>60); MAGNESIUM LEVEL 2.3 MG/DL (1.8-2.4); POTASSIUM SERUM 4.9 MEQ/L (3.5-5.1); SODIUM LEVEL 131 MEQ/L (136-145)
[2018-02-08 07:43] LABS: GLUCOSE, FASTING 520 MG/DL (70-100)
[2018-02-08] MEDS: ASPIRIN 81 MG ENTERIC TAB PO (08:12)
[2018-02-08] MEDS: TAMSULOSIN 0.4 MG CAP PO (08:12)
[2018-02-08] MEDS: MAGNESIUM OXIDE 400 MG TAB (MAG-OX) PO ×2 (08:13→21:50)
[2018-02-08] MEDS: LEVEMIR (INSULIN DETEMIR) 1 UNITS/0.01ML SC ×2 (08:13→21:51)
[2018-02-08] MEDS: PANTOPRAZOLE 40MG INJ (PROTONIX) (C9113) IV (08:13)
[2018-02-08] MEDS: amLODIPine 10 MG TAB PO (08:14)
[2018-02-08] MEDS: ATENOLOL 50 MG TAB PO ×2 (08:14→21:48)
[2018-02-08] MEDS ORDERED: LEVEMIR (INSULIN DETEMIR) 1 UNITS/0.01ML SC (09:00)
[2018-02-08 09:56] LABS: BEDSIDE GLUCOSE 371 MG/DL (70-105)
[2018-02-08 16:39] LABS: BEDSIDE GLUCOSE 146 MG/DL (70-105)
[2018-02-08 21:36] LABS: BEDSIDE GLUCOSE 292 MG/DL (70-105)
[2018-02-08] MEDS: AMITRIPTYLINE 25 MG TAB PO (21:49)
[2018-02-08] MEDS: ATORVASTATIN 20 MG TAB PO (21:49)
[2018-02-09 00:18] LABS: BEDSIDE GLUCOSE 303 MG/DL (70-105)
[2018-02-09] MEDS: LEVOTHYROXINE 137MCG TABLET (0.137MG) PO (05:41)
[2018-02-09] MEDS: HEPARIN SOD (PORCINE) 5000 UNITS/ML VIAL SC ×3 (05:42→21:25)
[2018-02-09 06:46] LABS: HEMATOCRIT 28.1 % (42.0-52.0); HEMOGLOBIN 9.2 g/dl (13.5-17.5); MEAN CORPUSCULAR HEMOGLOBIN 29.7 pg (27.0-33.0); MEAN CORPUSCULAR HGB CONC 32.7 g/dl (32.0-36.5); MEAN CORPUSCULAR VOLUME 90.6 fl (80.0-96.0); PLATELET COUNT, AUTOMATED 341 10^3/uL (150-450); WHITE BLOOD COUNT 9.2 10^3/uL (4.0-10.0)
[2018-02-09 07:02] LABS: ANION GAP 9 MEQ/L (8-16); BLOOD UREA NITROGEN 34 MG/DL (7-18); CALCIUM LEVEL 8.1 MG/DL (8.5-10.1); CARBON DIOXIDE LEVEL 24 MEQ/L (21-32); CHLORIDE LEVEL 111 MEQ/L (98-107); CREATININE FOR GFR 4.94 MG/DL (0.70-1.30); GLOMERULAR FILTRATION RATE 13.5 (>60); GLUCOSE, FASTING 45 MG/DL (70-100); MAGNESIUM LEVEL 2.7 MG/DL (1.8-2.4); POTASSIUM SERUM 4.2 MEQ/L (3.5-5.1); SODIUM LEVEL 144 MEQ/L (136-145)
[2018-02-09] MEDS: HumaLOG INSULIN (NovoLOG) PER UNIT SC ×4 (07:15→21:00)
[2018-02-09 07:22] LABS: BEDSIDE GLUCOSE 31 MG/DL (70-105)
[2018-02-09] MEDS: GLUCOSE 4 GM CHEW TABLET PO (07:25)
[2018-02-09 07:38] LABS: BEDSIDE GLUCOSE 57 MG/DL (70-105)
[2018-02-09] MEDS: LEVEMIR (INSULIN DETEMIR) 1 UNITS/0.01ML SC ×3 (07:49→21:25)
[2018-02-09] MEDS: PANTOPRAZOLE 40MG INJ (PROTONIX) (C9113) IV (08:45)
[2018-02-09] MEDS: ASPIRIN 81 MG ENTERIC TAB PO (08:45)
[2018-02-09] MEDS: MAGNESIUM OXIDE 400 MG TAB (MAG-OX) PO (08:45)
[2018-02-09] MEDS: TAMSULOSIN 0.4 MG CAP PO (08:45)
[2018-02-09] MEDS: amLODIPine 10 MG TAB PO (08:45)
[2018-02-09] MEDS: ATENOLOL 50 MG TAB PO ×2 (08:46→21:24)
[2018-02-09 11:24] LABS: BEDSIDE GLUCOSE 258 MG/DL (70-105)
[2018-02-09] MEDS: DARBEPOETIN 100 MCG/0.5 ML *NON-DIALYSIS* SYRINGE (J0881) SC (13:51)
[2018-02-09 16:31] LABS: BEDSIDE GLUCOSE 247 MG/DL (70-105)
[2018-02-09 21:15] LABS: BEDSIDE GLUCOSE 201 MG/DL (70-105)
[2018-02-09] MEDS: ATORVASTATIN 20 MG TAB PO (21:23)
[2018-02-09] MEDS: AMITRIPTYLINE 25 MG TAB PO (21:23)
[2018-02-10] MEDS: HEPARIN SOD (PORCINE) 5000 UNITS/ML VIAL SC ×3 (05:32→21:37)
[2018-02-10] MEDS: LEVOTHYROXINE 137MCG TABLET (0.137MG) PO (05:32)
[2018-02-10 06:07] LABS: HEMATOCRIT 25.3 % (42.0-52.0); HEMOGLOBIN 8.3 g/dl (13.5-17.5); MEAN CORPUSCULAR HEMOGLOBIN 29.9 pg (27.0-33.0); MEAN CORPUSCULAR HGB CONC 32.8 g/dl (32.0-36.5); PLATELET COUNT, AUTOMATED 323 10^3/uL (150-450); RED BLOOD COUNT 2.78 10^6/uL (4.30-6.10); RED CELL DISTRIBUTION WIDTH 14.1 % (11.5-14.5); WHITE BLOOD COUNT 9.5 10^3/uL (4.0-10.0)
[2018-02-10 06:22] LABS: ANION GAP 10 MEQ/L (8-16); BLOOD UREA NITROGEN 36 MG/DL (7-18); CALCIUM LEVEL 7.8 MG/DL (8.5-10.1); CARBON DIOXIDE LEVEL 22 MEQ/L (21-32); CHLORIDE LEVEL 109 MEQ/L (98-107); CREATININE FOR GFR 4.95 MG/DL (0.70-1.30); GLOMERULAR FILTRATION RATE 13.5 (>60); GLUCOSE, FASTING 44 MG/DL (70-100); MAGNESIUM LEVEL 2.5 MG/DL (1.8-2.4); POTASSIUM SERUM 4.5 MEQ/L (3.5-5.1); SODIUM LEVEL 141 MEQ/L (136-145)
[2018-02-10] MEDS: HumaLOG INSULIN (NovoLOG) PER UNIT SC ×4 (07:04→21:00)
[2018-02-10] MEDS: TAMSULOSIN 0.4 MG CAP PO (08:29)
[2018-02-10] MEDS: ATENOLOL 50 MG TAB PO ×2 (08:29→21:10)
[2018-02-10] MEDS: ASPIRIN 81 MG ENTERIC TAB PO (08:29)
[2018-02-10] MEDS: LEVEMIR (INSULIN DETEMIR) 1 UNITS/0.01ML SC ×2 (08:30→12:38)
[2018-02-10] MEDS: amLODIPine 10 MG TAB PO (08:30)
[2018-02-10] MEDS: MAGNESIUM OXIDE 400 MG TAB (MAG-OX) PO (08:52)
[2018-02-10 20:40] LABS: BEDSIDE GLUCOSE 123 MG/DL (70-105)
[2018-02-10] MEDS: ATORVASTATIN 20 MG TAB PO (21:09)
[2018-02-10] MEDS: AMITRIPTYLINE 25 MG TAB PO (21:09)
[2018-02-11 04:51] LABS: BEDSIDE GLUCOSE 68 MG/DL (70-105)
[2018-02-11 06:22] LABS: ANION GAP 11 MEQ/L (8-16); BLOOD UREA NITROGEN 39 MG/DL (7-18); CALCIUM LEVEL 8.2 MG/DL (8.5-10.1); CARBON DIOXIDE LEVEL 21 MEQ/L (21-32); CHLORIDE LEVEL 108 MEQ/L (98-107); CREATININE FOR GFR 4.94 MG/DL (0.70-1.30); GLOMERULAR FILTRATION RATE 13.5 (>60); GLUCOSE, FASTING 147 MG/DL (70-100); MAGNESIUM LEVEL 2.6 MG/DL (1.8-2.4); SODIUM LEVEL 140 MEQ/L (136-145)
[2018-02-11 06:24] LABS: HEMATOCRIT 26.4 % (42.0-52.0); HEMOGLOBIN 8.5 g/dl (13.5-17.5); MEAN CORPUSCULAR HEMOGLOBIN 30.4 pg (27.0-33.0); MEAN CORPUSCULAR HGB CONC 32.2 g/dl (32.0-36.5); MEAN CORPUSCULAR VOLUME 94.3 fl (80.0-96.0); PLATELET COUNT, AUTOMATED 341 10^3/uL (150-450); RED CELL DISTRIBUTION WIDTH 14.6 % (11.5-14.5); WHITE BLOOD COUNT 11.4 10^3/uL (4.0-10.0)
[2018-02-11] MEDS: LEVOTHYROXINE 137MCG TABLET (0.137MG) PO (07:00)
[2018-02-11] MEDS: HEPARIN SOD (PORCINE) 5000 UNITS/ML VIAL SC (07:01)
[2018-02-11] MEDS: LEVEMIR (INSULIN DETEMIR) 1 UNITS/0.01ML SC (08:26)
[2018-02-11] MEDS: HumaLOG INSULIN (NovoLOG) PER UNIT SC ×2 (08:26→12:38)
[2018-02-11] MEDS: ASPIRIN 81 MG ENTERIC TAB PO (08:27)
[2018-02-11] MEDS: TAMSULOSIN 0.4 MG CAP PO (08:27)
[2018-02-11] MEDS: MAGNESIUM OXIDE 400 MG TAB (MAG-OX) PO (08:27)
[2018-02-11] MEDS: amLODIPine 10 MG TAB PO (08:27)
[2018-02-11] MEDS: ATENOLOL 50 MG TAB PO (08:28)
[2018-02-11 11:36] LABS: BEDSIDE GLUCOSE 368 MG/DL (70-105)
[2018-02-11 20:24] LABS: BEDSIDE GLUCOSE 79 MG/DL (70-105)
[2018-02-11 20:24] LABS: BEDSIDE GLUCOSE 55 MG/DL (70-105)
[2018-02-11 20:24] LABS: BEDSIDE GLUCOSE 563 MG/DL (70-105)
[2018-02-11 20:24] LABS: BEDSIDE GLUCOSE 88 MG/DL (70-105)
[2018-02-11 20:25] LABS: BEDSIDE GLUCOSE 403 MG/DL (70-105)
== END 2018-02-11 14:07 | disposition home or self-care (01) | DRG 638 ==
LOC: M MSPAV 02-05 10:47 → M ED 13:01 → M ED INP 14:58 → M ICU 16:49
PROC: B54PZZZ Ultrasonography of Bilateral Upper Extremity Veins (ICD-10-PCS; principal; 2018-02-10)
DX: E10.10 Type 1 diabetes mellitus with ketoacidosis without coma (principal); N18.4 Chronic kidney disease, stage 4 (severe); N17.9 Acute kidney failure, unspecified; N25.81 Secondary hyperparathyroidism of renal origin; I12.9 Hypertensive chronic kidney disease with stage 1 through stage 4 chronic kidney disease, or unspecified chronic kidney disease; E87.5 Hyperkalemia; E03.9 Hypothyroidism, unspecified; E78.5 Hyperlipidemia, unspecified; E86.0 Dehydration; F17.210 Nicotine dependence, cigarettes, uncomplicated; K31.84 Gastroparesis; E10.43 Type 1 diabetes mellitus with diabetic autonomic (poly)neuropathy; E10.22 Type 1 diabetes mellitus with diabetic chronic kidney disease; E83.41 Hypermagnesemia; D63.1 Anemia in chronic kidney disease; R33.9 Retention of urine, unspecified; E10.649 Type 1 diabetes mellitus with hypoglycemia without coma; E10.65 Type 1 diabetes mellitus with hyperglycemia; Z79.82 Long term (current) use of aspirin; Z79.899 Other long term (current) drug therapy; Z79.4 Long term (current) use of insulin; Z90.49 Acquired absence of other specified parts of digestive tract; Z91.14 Patient's other noncompliance with medication regimen; Z91.11 Patient's noncompliance with dietary regimen

== ENCOUNTER 2018-03-01 15:19 | Inpatient (IN) | payer MEDICARE, MEDICAID ==
[2018-03-01 15:55] LABS: BEDSIDE GLUCOSE 360 MG/DL (70-105)
[2018-03-01 16:09] LABS: BASO % 0.1 % (0.0-1.0); HEMATOCRIT 36.1 % (42.0-52.0); HEMOGLOBIN 11.4 g/dl (13.5-17.5); IMMATURE GRANULOCYTE % 0.6 % (0-3.0); LYMPH # 0.7 10^3/uL (1.5-4.5); LYMPH % 4.5 % (24.0-44.0); MEAN CORPUSCULAR HGB CONC 31.6 g/dl (32.0-36.5); MONO # 0.7 10^3/uL (0.0-0.8); MONO % 4.9 % (0.0-5.0); NEUTROPHILS # 13.3 10^3/uL (1.8-7.7); NEUTROPHILS % 89.9 % (36.0-66.0); PLATELET COUNT, AUTOMATED 475 10^3/uL (150-450); RED CELL DISTRIBUTION WIDTH 14.2 % (11.5-14.5); WHITE BLOOD COUNT 14.8 10^3/uL (4.0-10.0)
[2018-03-01] MEDS: ONDANSETRON 4MG/2ML VIAL (J2405) IV (16:12)
[2018-03-01 16:49] LABS: LACTIC ACID SEPSIS PROTOCOL 7.2 MMOL/L (0.4-2.0)
[2018-03-01] MEDS: NS 1,000 ML IV (17:03)
[2018-03-01 17:04] LABS: ALBUMIN 2.1 GM/DL (3.2-5.2); ALBUMIN/GLOBULIN RATIO 0.48 (1.00-1.93); ALKALINE PHOSPHATASE 157 U/L (45-117); ALT/SGPT 17 U/L (12-78); ANION GAP 21 MEQ/L (8-16); AST/SGOT 12 U/L (7-37); BILIRUBIN,DIRECT < 0.1 MG/DL (0.0-0.2); BILIRUBIN,TOTAL 0.4 MG/DL (0.2-1.0); BLOOD UREA NITROGEN 42 MG/DL (7-18); CALCIUM LEVEL 8.5 MG/DL (8.5-10.1); CARBON DIOXIDE LEVEL 12 MEQ/L (21-32); CHLORIDE LEVEL 99 MEQ/L (98-107); CPK CREATINE PHOSPHOKINASE 85 U/L (39-308); CREATININE FOR GFR 5.78 MG/DL (0.70-1.30); GLOMERULAR FILTRATION RATE 11.3 (>60); GLUCOSE, FASTING 385 MG/DL (70-100); LIPASE 3526 U/L (73-393); MB/CK RELATIVE INDEX 2.71 (< OR =4); POTASSIUM SERUM 4.4 MEQ/L (3.5-5.1); SODIUM LEVEL 132 MEQ/L (136-145); TOTAL PROTEIN 6.5 GM/DL (6.4-8.2); TROPONIN I 0.02 NG/ML (< 0.10)
[2018-03-01] MEDS: HumuLIN R (REGULAR) INSULIN (NovoLIN R) **100U/ML** PER UNIT IV (17:44)
[2018-03-01 18:27] LABS: ABG BASE EXCESS -10.6 (-2.0-2.0); ABG HCO3 13.7 MEQ/L (22.0-26.0); ABG O2 SATURATION 98.5 % (95.0-99.0); ABG PARTIAL PRESSURE CO2 26.3 mmHg (35.0-45.0); ABG PARTIAL PRESSURE O2 113.3 mmHg (75.0-100.0); ABG STANDARD HCO3 16.1 MEQ/L (22.0-26.0); ABG TOTAL CO2 14.5 MEQ/L (22.0-29.0); ABG pH (ARTERIAL) 7.335 UNITS (7.350-7.450)
[2018-03-01 18:28] LABS: BEDSIDE GLUCOSE 174 MG/DL (70-105)
[2018-03-01 18:37] LABS: KETONE, URINE AUTO RFX 1+ mg/dL (NEGATIVE); LEUKOCYTE ESTERASE UR AUTO RFX NEGATIVE (NEGATIVE); MUCUS, URINE RFX SMALL (NEGATIVE); NITRITE, URINE AUTO RFX NEGATIVE (NEGATIVE); RBC, URINE AUTO RFX 2 /HPF (0-3); SPECIFIC GRAVITY UR AUTO RFX 1.011 (1.002-1.035); SQUAM EPITHELIAL CELL UR AURFX 0 /HPF (0-6); WBC, URINE AUTO RFX 7 /HPF (0-3)
[2018-03-01] MEDS ORDERED: NS 3,000 ML IV (19:45)
[2018-03-01 20:17] LABS: ACETONE/KETONE 33.97 MG/DL (<2.81)
[2018-03-01] MEDS ORDERED: D5W IV (20:40)
[2018-03-01] MEDS ORDERED: SWI IV (20:40)
[2018-03-01] MEDS ORDERED: SODIUM CHLORIDE IV (20:40)
[2018-03-01] MEDS ORDERED: KCL IV (20:40)
[2018-03-01] MEDS ORDERED: INSULIN HUMAN REGULAR 100 UNITS in NS 99 ML IV (20:40)
[2018-03-01] MEDS ORDERED: INSULIN IV RATE CHANGE DOCUMENTATION ML/HR XX (20:45)
[2018-03-01] MEDS: NS 2,000 ML IV (20:52)
[2018-03-01 22:05] LABS: ESTIMATED AVERAGE GLUCOSE 258 MG/DL (60-110); HEMOGLOBIN A1c 10.6 %
[2018-03-01] MEDS: LABETALOL HCL 100 MG/20 ML VIAL IV (22:09)
[2018-03-01 22:13] LABS: ANION GAP 14 MEQ/L (8-16); BLOOD UREA NITROGEN 42 MG/DL (7-18); CARBON DIOXIDE LEVEL 17 MEQ/L (21-32); CHLORIDE LEVEL 106 MEQ/L (98-107); CHOLESTEROL LEVEL 264 MG/DL (<200); CHOLESTEROL RISK RATIO 4.888 (<5); CREATININE FOR GFR 4.68 MG/DL (0.70-1.30); GLOMERULAR FILTRATION RATE 14.4 (>60); GLUCOSE, FASTING 200 MG/DL (70-100); HDL CHOLESTEROL 54 MG/DL (>40); LDL CHOLESTEROL 138 MG/DL (<100); MAGNESIUM LEVEL 2.2 MG/DL (1.8-2.4); NON-HDL-C 210 MG/DL; POTASSIUM SERUM 4.3 MEQ/L (3.5-5.1); SODIUM LEVEL 137 MEQ/L (136-145); TRIGLYCERIDES LEVEL 358 MG/DL (<150)
[2018-03-01 22:33] LABS: BEDSIDE GLUCOSE 262 MG/DL (70-105)
[2018-03-01] MEDS ORDERED: GLUCAGON FOR INJ 1 MG VIAL (J1610) SC (22:45)
[2018-03-01] MEDS ORDERED: DEXTROSE 50% 50 ML SYRINGE IV (22:45)
[2018-03-01] MEDS ORDERED: GLUCOSE 4 GM CHEW TABLET PO (22:45)
[2018-03-01] MEDS: ATORVASTATIN 20 MG TAB PO (23:07)
[2018-03-01] MEDS: HumaLOG INSULIN (NovoLOG) PER UNIT SC (23:08)
[2018-03-01] MEDS: AMITRIPTYLINE 25 MG TAB PO (23:18)
[2018-03-02 01:10] LABS: ANION GAP 12 MEQ/L (8-16); BLOOD UREA NITROGEN 39 MG/DL (7-18); CALCIUM LEVEL 7.8 MG/DL (8.5-10.1); CARBON DIOXIDE LEVEL 17 MEQ/L (21-32); CHLORIDE LEVEL 106 MEQ/L (98-107); CPK CREATINE PHOSPHOKINASE 65 U/L (39-308); GLOMERULAR FILTRATION RATE 13.6 (>60); GLUCOSE, FASTING 345 MG/DL (70-100); MB/CK RELATIVE INDEX 3.23 (< OR =4); POTASSIUM SERUM 3.9 MEQ/L (3.5-5.1); SODIUM LEVEL 135 MEQ/L (136-145); TROPONIN I 0.04 NG/ML (< 0.10)
[2018-03-02] MEDS: hydrALAZINE INJ 20 MG/ML VIAL IV (01:13)
[2018-03-02 05:00] LABS: HEMATOCRIT 32.4 % (42.0-52.0); HEMOGLOBIN 10.5 g/dl (13.5-17.5); MEAN CORPUSCULAR HEMOGLOBIN 30.2 pg (27.0-33.0); MEAN CORPUSCULAR HGB CONC 32.4 g/dl (32.0-36.5); MEAN CORPUSCULAR VOLUME 93.1 fl (80.0-96.0); PLATELET COUNT, AUTOMATED 414 10^3/uL (150-450); RED BLOOD COUNT 3.48 10^6/uL (4.30-6.10); RED CELL DISTRIBUTION WIDTH 14.2 % (11.5-14.5)
[2018-03-02] MEDS: HEPARIN SOD (PORCINE) 5000 UNITS/ML VIAL SC ×3 (05:03→21:11)
[2018-03-02] MEDS: LEVOTHYROXINE 137MCG TABLET (0.137MG) PO (05:03)
[2018-03-02 05:18] LABS: ANION GAP 11 MEQ/L (8-16); BLOOD UREA NITROGEN 41 MG/DL (7-18); CALCIUM LEVEL 7.9 MG/DL (8.5-10.1); CARBON DIOXIDE LEVEL 18 MEQ/L (21-32); CHLORIDE LEVEL 106 MEQ/L (98-107); CREATININE FOR GFR 4.66 MG/DL (0.70-1.30); GLOMERULAR FILTRATION RATE 14.4 (>60); GLUCOSE, FASTING 368 MG/DL (70-100); POTASSIUM SERUM 4.8 MEQ/L (3.5-5.1); SODIUM LEVEL 135 MEQ/L (136-145)
[2018-03-02] MEDS: ONDANSETRON 4MG/2ML VIAL (J2405) IV (08:06)
[2018-03-02] MEDS: HumaLOG INSULIN (NovoLOG) PER UNIT SC ×2 (08:06→11:58)
[2018-03-02] MEDS: TAMSULOSIN 0.4 MG CAP PO (08:07)
[2018-03-02] MEDS: ASPIRIN 81 MG ENTERIC TAB PO (08:07)
[2018-03-02] MEDS: ATENOLOL 25 MG TAB PO (08:07)
[2018-03-02] MEDS: amLODIPine 10 MG TAB PO (08:08)
[2018-03-02] MEDS: LEVEMIR (INSULIN DETEMIR) 1 UNITS/0.01ML SC (08:13)
[2018-03-02 09:33] LABS: ANION GAP 17 MEQ/L (8-16); BLOOD UREA NITROGEN 42 MG/DL (7-18); CALCIUM LEVEL 8.1 MG/DL (8.5-10.1); CARBON DIOXIDE LEVEL 13 MEQ/L (21-32); CHLORIDE LEVEL 103 MEQ/L (98-107); CREATININE FOR GFR 4.75 MG/DL (0.70-1.30); GLOMERULAR FILTRATION RATE 14.1 (>60); GLUCOSE, FASTING 490 MG/DL (70-100); POTASSIUM SERUM 4.5 MEQ/L (3.5-5.1); SODIUM LEVEL 133 MEQ/L (136-145)
[2018-03-02] MEDS: NS 1,000 ML IV ×3 (11:00→23:56)
[2018-03-02 11:43] LABS: BEDSIDE GLUCOSE 242 MG/DL (70-105)
[2018-03-02] MEDS ORDERED: METOCLOPRAMIDE INJ 10MG/2ML VIAL (J2765) As Ordered (11:55)
[2018-03-02] MEDS: METOCLOPRAMIDE INJ 10MG/2ML VIAL (J2765) IV (11:58)
[2018-03-02] MEDS: **hydrALAZINE** 10 MG TAB PO ×2 (14:00→21:11)
[2018-03-02 14:35] LABS: ANION GAP 18 MEQ/L (8-16); BLOOD UREA NITROGEN 42 MG/DL (7-18); CARBON DIOXIDE LEVEL 13 MEQ/L (21-32); CHLORIDE LEVEL 107 MEQ/L (98-107); CREATININE FOR GFR 4.78 MG/DL (0.70-1.30); GLUCOSE, FASTING 184 MG/DL (70-100); POTASSIUM SERUM 4.4 MEQ/L (3.5-5.1); SODIUM LEVEL 138 MEQ/L (136-145)
[2018-03-02] MEDS ORDERED: INSULIN IV RATE CHANGE DOCUMENTATION ML/HR XX (15:00)
[2018-03-02] MEDS ORDERED: INSULIN HUMAN REGULAR 100 UNITS in NS 99 ML IV (15:00)
[2018-03-02] MEDS: D5W/0.45% SODIUM CHLORIDE 1,000 ML IV (15:00)
[2018-03-02 15:14] LABS: BEDSIDE GLUCOSE 77 MG/DL (70-105)
[2018-03-02 16:39] LABS: BEDSIDE GLUCOSE 49 MG/DL (70-105)
[2018-03-02 17:38] LABS: BEDSIDE GLUCOSE 86 MG/DL (70-105)
[2018-03-02 17:53] LABS: BEDSIDE GLUCOSE 89 MG/DL (70-105)
[2018-03-02 18:37] LABS: BEDSIDE GLUCOSE 87 MG/DL (70-105)
[2018-03-02 18:43] LABS: ANION GAP 12 MEQ/L (8-16); BLOOD UREA NITROGEN 39 MG/DL (7-18); CALCIUM LEVEL 8.4 MG/DL (8.5-10.1); CARBON DIOXIDE LEVEL 20 MEQ/L (21-32); CHLORIDE LEVEL 110 MEQ/L (98-107); CREATININE FOR GFR 4.44 MG/DL (0.70-1.30); GLOMERULAR FILTRATION RATE 15.3 (>60); GLUCOSE, FASTING 84 MG/DL (70-100); POTASSIUM SERUM 3.4 MEQ/L (3.5-5.1); SODIUM LEVEL 142 MEQ/L (136-145)
[2018-03-02 20:01] LABS: BEDSIDE GLUCOSE 68 MG/DL (70-105)
[2018-03-02 20:47] LABS: ANION GAP 12 MEQ/L (8-16); BLOOD UREA NITROGEN 38 MG/DL (7-18); CALCIUM LEVEL 8.5 MG/DL (8.5-10.1); CARBON DIOXIDE LEVEL 19 MEQ/L (21-32); CHLORIDE LEVEL 109 MEQ/L (98-107); CREATININE FOR GFR 4.32 MG/DL (0.70-1.30); GLOMERULAR FILTRATION RATE 15.8 (>60); GLUCOSE, FASTING 69 MG/DL (70-100); POTASSIUM SERUM 3.5 MEQ/L (3.5-5.1); SODIUM LEVEL 140 MEQ/L (136-145)
[2018-03-02 20:58] LABS: BEDSIDE GLUCOSE 139 MG/DL (70-105)
[2018-03-02] MEDS: AMITRIPTYLINE 25 MG TAB PO (21:10)
[2018-03-02] MEDS: ATORVASTATIN 20 MG TAB PO (21:11)
[2018-03-02 21:54] LABS: BEDSIDE GLUCOSE 192 MG/DL (70-105)
[2018-03-02] MEDS: LOMOTIL 2.5MG/0.025MG TABLET PO (21:56)
[2018-03-02 23:00] LABS: ANION GAP 14 MEQ/L (8-16); BLOOD UREA NITROGEN 36 MG/DL (7-18); CALCIUM LEVEL 8.2 MG/DL (8.5-10.1); CARBON DIOXIDE LEVEL 18 MEQ/L (21-32); CHLORIDE LEVEL 107 MEQ/L (98-107); CREATININE FOR GFR 4.55 MG/DL (0.70-1.30); GLOMERULAR FILTRATION RATE 14.8 (>60); GLUCOSE, FASTING 168 MG/DL (70-100); POTASSIUM SERUM 3.9 MEQ/L (3.5-5.1); SODIUM LEVEL 139 MEQ/L (136-145)
[2018-03-02 23:00] LABS: BEDSIDE GLUCOSE 190 MG/DL (70-105)
[2018-03-02 23:53] LABS: BEDSIDE GLUCOSE 276 MG/DL (70-105)
[2018-03-03 01:53] LABS: BEDSIDE GLUCOSE 242 MG/DL (70-105)
[2018-03-03 03:52] LABS: BEDSIDE GLUCOSE 269 MG/DL (70-105)
[2018-03-03] MEDS: HEPARIN SOD (PORCINE) 5000 UNITS/ML VIAL SC ×2 (05:10→14:00)
[2018-03-03] MEDS: LEVOTHYROXINE 137MCG TABLET (0.137MG) PO (05:10)
[2018-03-03] MEDS: **hydrALAZINE** 10 MG TAB PO (05:11)
[2018-03-03 05:31] LABS: ANION GAP 12 MEQ/L (8-16); BLOOD UREA NITROGEN 35 MG/DL (7-18); CARBON DIOXIDE LEVEL 21 MEQ/L (21-32); CHLORIDE LEVEL 108 MEQ/L (98-107); CREATININE FOR GFR 4.53 MG/DL (0.70-1.30); GLOMERULAR FILTRATION RATE 14.9 (>60); GLUCOSE, FASTING 264 MG/DL (70-100); POTASSIUM SERUM 4.2 MEQ/L (3.5-5.1); SODIUM LEVEL 141 MEQ/L (136-145)
[2018-03-03 05:59] LABS: HEMATOCRIT 30.6 % (42.0-52.0); HEMOGLOBIN 9.8 g/dl (13.5-17.5); MEAN CORPUSCULAR HEMOGLOBIN 30.1 pg (27.0-33.0); MEAN CORPUSCULAR VOLUME 93.9 fl (80.0-96.0); PLATELET COUNT, AUTOMATED 386 10^3/uL (150-450); RED BLOOD COUNT 3.26 10^6/uL (4.30-6.10); WHITE BLOOD COUNT 7.7 10^3/uL (4.0-10.0)
[2018-03-03 06:01] LABS: BEDSIDE GLUCOSE 273 MG/DL (70-105)
[2018-03-03 07:53] LABS: BEDSIDE GLUCOSE 275 MG/DL (70-105)
[2018-03-03 09:02] LABS: LIPASE 1139 U/L (73-393)
[2018-03-03] MEDS: ASPIRIN 81 MG ENTERIC TAB PO (09:08)
[2018-03-03] MEDS: TAMSULOSIN 0.4 MG CAP PO (09:08)
[2018-03-03] MEDS: amLODIPine 10 MG TAB PO (09:08)
[2018-03-03] MEDS: ATENOLOL 25 MG TAB PO (09:08)
[2018-03-03] MEDS: HumaLOG INSULIN (NovoLOG) PER UNIT SC ×2 (09:09→12:34)
[2018-03-03] MEDS: LEVEMIR (INSULIN DETEMIR) 1 UNITS/0.01ML SC (09:09)
[2018-03-03 11:38] LABS: BEDSIDE GLUCOSE 157 MG/DL (70-105)
[2018-03-03] MEDS: TORSEMIDE 20 MG TAB PO ×2 (12:00→12:34)
[2018-03-03 14:34] LABS: ANION GAP 15 MEQ/L (8-16); BLOOD UREA NITROGEN 35 MG/DL (7-18); CALCIUM LEVEL 8.3 MG/DL (8.5-10.1); CARBON DIOXIDE LEVEL 16 MEQ/L (21-32); CHLORIDE LEVEL 108 MEQ/L (98-107); CREATININE FOR GFR 4.47 MG/DL (0.70-1.30); GLOMERULAR FILTRATION RATE 15.1 (>60); GLUCOSE, FASTING 150 MG/DL (70-100); POTASSIUM SERUM 4.3 MEQ/L (3.5-5.1); SODIUM LEVEL 139 MEQ/L (136-145)
[2018-03-03] MEDS ORDERED: HumaLOG INSULIN (NovoLOG) PER UNIT SC (21:00)
[2018-03-04] MEDS ORDERED: TORSEMIDE 20 MG TAB PO (09:00)
[2018-03-05] MEDS ORDERED: CALCITRIOL 0.25 MCG CAP (S0169) PO (09:00)
== END 2018-03-03 16:05 | disposition home health service (06) | DRG 438 ==
LOC: M ED 15:19 → M ED INP 19:47 → M ICU 22:26
PROVIDERS: Internal Medicine
DX: K85.90 Acute pancreatitis without necrosis or infection, unspecified (principal); E11.10 Type 2 diabetes mellitus with ketoacidosis without coma; N18.5 Chronic kidney disease, stage 5; N17.9 Acute kidney failure, unspecified; I12.0 Hypertensive chronic kidney disease with stage 5 chronic kidney disease or end stage renal disease; N25.81 Secondary hyperparathyroidism of renal origin; E11.65 Type 2 diabetes mellitus with hyperglycemia; E03.9 Hypothyroidism, unspecified; G47.00 Insomnia, unspecified; E78.5 Hyperlipidemia, unspecified; N40.0 Benign prostatic hyperplasia without lower urinary tract symptoms; E11.22 Type 2 diabetes mellitus with diabetic chronic kidney disease; Z79.4 Long term (current) use of insulin; Z79.82 Long term (current) use of aspirin; Z79.899 Other long term (current) drug therapy

== ENCOUNTER 2018-03-12 10:03 | Day surgery (SDC) | payer MEDICARE, MEDICAID ==
[2018-03-12] MEDS: ISOVUE-300 61% 50ML VIAL (Q9967) As Ordered ×2 (10:43)
[2018-03-12 10:52] LABS: BEDSIDE GLUCOSE 196 MG/DL (70-105)
[2018-03-12] MEDS ORDERED: PROPOFOL 200 MG/20 ML VIAL As Ordered ×10 (11:47→13:36)
[2018-03-12] MEDS ORDERED: fentaNYL 100 MCG/2 ML INJECTION (J3010) As Ordered ×2 (11:47)
[2018-03-12] MEDS ORDERED: MIDAZOLAM INJ 2 MG/2 ML VIAL (J2250) As Ordered ×2 (11:47)
[2018-03-12] MEDS ORDERED: LIDOCAINE 2% INJ 100 MG/5 ML SDV (FOR ANES.) As Ordered ×2 (11:48)
[2018-03-12] MEDS ORDERED: D5W/0.2% SODIUM CHLORIDE 1,000 ML IV ×2 (12:00)
[2018-03-12] MEDS ORDERED: HEPARIN SOD (PORCINE) 5000 UNITS/ML VIAL As Ordered ×2 (12:55)
[2018-03-12] MEDS: LIDOCAINE 1% SDV INJ 30 ML VIAL As Ordered ×2 (13:00)
[2018-03-12] MEDS: BUPIVACAINE HCL 0.5% 30 ML VIAL As Ordered ×2 (13:00)
[2018-03-12] MEDS: HEPARIN SOD (PORCINE) 5000 UNITS/ML VIAL As Ordered ×2 (13:00)
[2018-03-12] MEDS ORDERED: fentaNYL 100 MCG/2 ML INJECTION (J3010) IV ×2 (14:30)
[2018-03-12] MEDS ORDERED: ONDANSETRON 4MG/2ML VIAL (J2405) IV ×2 (14:30)
[2018-03-12] MEDS ORDERED: LR 1,000 ML IV ×2 (14:30)
== END 2018-03-12 15:05 | disposition home or self-care (01) ==
LOC: M SDC 10:03
DX: E11.22 Type 2 diabetes mellitus with diabetic chronic kidney disease (principal); I12.9 Hypertensive chronic kidney disease with stage 1 through stage 4 chronic kidney disease, or unspecified chronic kidney disease; N18.9 Chronic kidney disease, unspecified; K85.90 Acute pancreatitis without necrosis or infection, unspecified; E11.10 Type 2 diabetes mellitus with ketoacidosis without coma; Z91.19 Patient's noncompliance with other medical treatment and regimen; M79.89 Other specified soft tissue disorders
CPT/HCPCS: 36821

== ENCOUNTER 2018-03-19 14:57 | Emergency (ER) | payer MEDICARE, MEDICAID ==
[2018-03-19 16:01] LABS: BASO % 0.4 % (0.0-1.0); EOS # 0.1 10^3/uL (0.0-0.50); EOS % 1.6 % (0.0-3.0); HEMATOCRIT 33.7 % (42.0-52.0); HEMOGLOBIN 11.1 g/dl (13.5-17.5); IMMATURE GRANULOCYTE % 0.4 % (0-3.0); LYMPH # 1.3 10^3/uL (1.5-4.5); LYMPH % 18.2 % (24.0-44.0); MEAN CORPUSCULAR HEMOGLOBIN 29.7 pg (27.0-33.0); MEAN CORPUSCULAR HGB CONC 32.9 g/dl (32.0-36.5); MEAN CORPUSCULAR VOLUME 90.1 fl (80.0-96.0); MONO # 0.4 10^3/uL (0.0-0.8); MONO % 5.1 % (0.0-5.0); NEUTROPHILS # 5.4 10^3/uL (1.8-7.7); NEUTROPHILS % 74.3 % (36.0-66.0); PLATELET COUNT, AUTOMATED 358 10^3/uL (150-450); RED BLOOD COUNT 3.74 10^6/uL (4.30-6.10); RED CELL DISTRIBUTION WIDTH 13.2 % (11.5-14.5); WHITE BLOOD COUNT 7.3 10^3/uL (4.0-10.0)
[2018-03-19 16:30] LABS: ANION GAP 17 MEQ/L (8-16); BLOOD UREA NITROGEN 33 MG/DL (7-18); CALCIUM LEVEL 8.4 MG/DL (8.5-10.1); CARBON DIOXIDE LEVEL 16 MEQ/L (21-32); CHLORIDE LEVEL 98 MEQ/L (98-107); CREATININE FOR GFR 4.77 MG/DL (0.70-1.30); GLOMERULAR FILTRATION RATE 14.1 (>60); GLUCOSE, FASTING 293 MG/DL (70-100); POTASSIUM SERUM 4.6 MEQ/L (3.5-5.1); SODIUM LEVEL 131 MEQ/L (136-145)
== END 2018-03-19 17:19 | disposition home or self-care (01) ==
LOC: M ED 14:57
DX: R79.89 Other specified abnormal findings of blood chemistry (principal); R73.9 Hyperglycemia, unspecified; N28.9 Disorder of kidney and ureter, unspecified; Z99.2 Dependence on renal dialysis; F17.200 Nicotine dependence, unspecified, uncomplicated; Z79.899 Other long term (current) drug therapy; Z79.4 Long term (current) use of insulin
CPT/HCPCS: 80048

== ENCOUNTER 2018-04-08 12:37 | Emergency (ER) | payer MEDICARE, MEDICAID ==
[~2018-04-08] VITALS: Ht 188 cm; Wt 75.9 kg
[~2018-04-08 12:37] MED LIST changes: +AMLO10TA5 PO; +ASPI1TAB15 PO; -ATEN25TA; +ATEN25TA PO; +ATOR40TA75 PO; +AURY1TAB PO; +CALC1CAP31 PO; +CALC625T3 PO; +D-CA1KIT XX; +FIBE625T22 PO; +FLOM0.4C39 PO; +INSUDET SC; +LABE10TAB PO; +LEVA250T13 PO; -LEVE1INJ5; +LEVE1INJ5 SC; +LEVE1INJ5 SQ; +LISI40TA PO; -METF500T13; +METF500T13 PO; +MOBI4TAB PO; +SODI200S PO; +SYNT112T2 PO; +SYNT137T7 PO; +TORS20TA2 PO; +TORS5TAB2 PO; +VELT1POW PO; +VITA50005 PO
[2018-04-08] MEDS ORDERED: LIDOCAINE 1% MDV 20ML VIAL IM ONE (15:30)
[2018-04-08] MEDS ORDERED: ATENOLOL 25 MG TAB PO ONE (16:00)
[2018-04-08 16:02] VITALS: BP 228/112
[2018-04-08 16:29] VITALS: BP 208/102
== END 2018-04-08 16:34 | disposition home or self-care (01) ==
LOC: M ED 12:37
DX: S61.212A Laceration without foreign body of right middle finger without damage to nail, initial encounter (principal); W26.9XXA Contact with unspecified sharp object(s), initial encounter; Y92.019 Unspecified place in single-family (private) house as the place of occurrence of the external cause

== ENCOUNTER 2018-04-14 15:44 | Emergency (ER) | payer MEDICARE, MEDICAID | END 2018-04-14 16:58 | disposition home or self-care (01) | LOC: M ED 15:44 | DX: Z48.02 Encounter for removal of sutures (principal); I50.9 Heart failure, unspecified; E11.9 Type 2 diabetes mellitus without complications; Z79.82 Long term (current) use of aspirin; Z79.4 Long term (current) use of insulin; Z79.899 Other long term (current) drug therapy | CPT/HCPCS: 99282 ==

== ENCOUNTER → 2018-04-26 | Outpatient (CLI) | payer MEDICARE, MEDICAID ==
[~2018-04-26] MED LIST changes: -/CELE20CA; -/ESOM40CA; -/SUCR1TA; -ACET500T2; -ACET65TA; -ALCOHOL TOP; -AMIT25TA PO; -AMLO10TA5 PO; -AMOXICILLIN; -ARTI99.0; -ASPI1TAB PO; -ASPI1TAB15 PO; -ASPI81TA24 PO; -ASPI81TA83; -ATEN25TA PO; -ATOR40TA75 PO; -AUGM875T28 PO; -AURY1TAB PO; -BIAX500T; -CALC1CAP31 PO; -CALC625T3 PO; -CELEXA20 PO; -D-CA1KIT XX; -FIBE625T22 PO; -FIBE62TA PO; -FLOM0.4C39 PO; -GLUC1TOUCH TOPICAL; -GLUCOPH500 PO; -GLUCOSE TEST; -GLUCULTRA TOPICAL; -HUMULINN SC; -HUMULINR SC; -INSUDET SC; -INSUH10VL SC; -INSULADS SC; -INSULANT; -INSULINSYR SUBQ; +ISOVUE-300 61% 50ML VIAL (Q9967) As Ordered; -KDUR20 PO; -LABE10TAB PO; -LANCMIS; -LANTUS SQ; -LANTUSCART; -LESCOLXL80 PO; -LEVA250T13 PO; -LEVE1INJ5 SC; -LEVE1INJ5 SQ; -LEVO25TABR; -LEVO25TABR PO; -LEVO50TA45 PO; +LIDOCAINE 2% MDV 20 ML VIAL As Ordered; -LIPITOR80 PO; -LISI40TA PO; -LISI40TAB PO; -LISI5TAB; -MAG-TAB; -MAG-TAB PO; -METF500T13 PO; -METO10TA2; -MOBI4TAB PO; -NEEDLESGP; -NEXI40GR; -NOVO7030 SC; -NOVOLOG SQ; -NOVOLOG100 MG/ML; -NOVOLOG100 MG/ML SQ; -NOVOLOGPEN SQ; -PERCOCET PO; -POTA10CA2 OR; -POTA1TAB14 PO; -PRIN10TA; -PRIN5TAB OR; -QUININE325 PO; -SIMV40TA2 PO; -SLOWMAG PO; -SODI200S PO; -SYNT112T2 PO; -SYNT137T7 PO; -SYNT50TA; -SYNTHRO025 PO; -SYNTHRO075 PO; -SYNTHROI05 PO; -SYRIN.5CC SUBQ; -TORS20TA2 PO; -TORS5TAB2 PO; -VELT1POW PO; -VITA50005 PO; -VYTO10TA5; -VYTORIN80 PO; -ZETI10TA; -ZETI10TA PO; -ZETIA PO; -ZOCOR80 PO; -[UNRECOGNIZED DRUG - CODE] SQ; -[UNRECOGNIZED DRUG - CODE] SQ
== END ==
LOC: M IRPRO 10:03
DX: N18.6 End stage renal disease (principal); Z53.8 Procedure and treatment not carried out for other reasons